=== PATIENT | female | born 1950 | race Caucasian/White ===

== ENCOUNTER 2016-12-05 08:20 | Day surgery (SDC) | payer MEDICARE, OTHER ==
[2016-12-04 09:52] VITALS: BMI 27.7
[2016-12-05] MEDS ORDERED: LIDOCAINE 1% 20 ML VIAL (10MG/ML) FOR IV START INTRADERMA PRN (09:07)
[2016-12-05] MEDS ORDERED: LACTATED RINGERS 1,000 ML IV SCH (09:07)
[2016-12-05 09:10] VITALS: RESP 16; TEMP 98.2
[2016-12-05] MEDS ORDERED: PROPOFOL 10 MG/ML 20 ML VIAL IV ONE (09:50)
--- NOTE | 2016-12-05 10:19 | P.PCN ---
Date of Procedure: 12/05/16 Procedure(s) Performed: Procedure: Esophagogastroduodenoscopy and biopsy. Preoperative diagnosis dyspepsia. Postoperative diagnosis: 1. Small sliding hiatal hernia with no obvious esophagitis or complicated reflux disease. 2. Mild gastritis with no ulcers or gastric outlet obstruction. Preparation and sedation: Were provided by anesthesia. Brief clinical history: The patient is a 66-year-old female who I have evaluated in the office earlier this month regarding fullness feeling in her stomach that started 8-9 months ago. She also reported history of chronic tightness sensation in her throat. She denied any nausea, vomiting, reflux or postnasal drip. She had multiple normal colonoscopies in the past the last was 3 years ago. She had a CT of the abdomen before her visit and that was normal with the only finding of left ovarian cyst. This evaluation is to assess for peptic ulcer disease or other pathology. Procedure: With the patient on her left lateral decubitus position and after informed consent and adequate sedation, I passed the Olympus-GIF 160 video upper endoscope through the cricopharyngeus down the esophagus. GE junction was around 36-37 cm from the incisors and there was a small sliding hiatal hernia. The esophagus did not show any obvious erosions, ulcers, strictures or Tao's esophagus. The endoscope was then passed into the stomach which was insufflated with air and inspected in detail including the retroflex view in the cardia. There was minimal mottling and erythema in the antrum and the prepyloric area with no ulcers or gastric outlet obstruction. There was a prominent fold in the cardia very close to the GE junction. These findings were consistent with gastritis. I obtained biopsies from the antrum and from the cardia. Pyloric channel did not show any ulcers. Duodenal bulb, post bulbar area and descending duodenum appeared within normal limits. Because of her symptoms, I obtained multiple biopsies from the duodenum, antrum and esophagus before the endoscope was withdrawn. The patient tolerated the procedure well. Plan: The patient was reassured. Will await biopsy results and make further plans based on her course and biopsy results. She will follow-up with you as planned including follow-up for the ovarian cyst reported on her CT. I will keep you updated on her progress.
[2016-12-05 10:50] VITALS: BP 124/74; PULSE 80
== END 2016-12-05 10:51 | disposition home or self-care (01) ==
LOC: ORWHC2ENDO 08:20
DX: K20.9 Esophagitis, unspecified (principal); K44.9 Diaphragmatic hernia without obstruction or gangrene; K29.50 Unspecified chronic gastritis without bleeding; Z79.899 Other long term (current) drug therapy
CPT/HCPCS: 88305; 88342; 43239; J2704; 99153

== ENCOUNTER → 2016-12-20 | Outpatient (CLI) | payer MEDICARE, OTHER ==
--- NOTE | 2016-12-20 22:31 | US ---
EXAMINATION TYPE: US pelvic complete DATE OF EXAM: 12/20/2016 3:56 PM COMPARISON: NONE CLINICAL HISTORY: 66-year-old female N83.20 PREVIOUS OVARIAN CYST. Patient states abnormal CT at [facility] showing left ovarian cyst. Previous Hysterectomy for cervical cancer at age 33 TECHNIQUE: Transabdominal scanning of the pelvis. FINDINGS: Uterus: Surgically Absent Right Ovary: 2.5 x 2.5 x 1.1 cm cm for a volume of 3.6 mL. Left Ovary: 4.9 x 4.9 x 3.6 cm cm for volume of 45.3 mL, enlarged secondary to a 4.0 cm simple cyst. Otherwise, no evidence of adnexal abnormality or cul-de-sac free fluid. IMPRESSION: 1. Status post hysterectomy. 2. A 4.0 cm simple cyst within the left ovary. Consensus guidelines recommend annual surveillance ult rasound for a lesion of this type in a postmenopausal female.
== END | disposition home or self-care (01) ==
LOC: RADUSWWP 15:23
PROVIDERS: ATTEND Obstetrics & Gynecology
DX: N83.202 Unspecified ovarian cyst, left side (principal); Z90.710 Acquired absence of both cervix and uterus; Z78.0 Asymptomatic menopausal state
CPT/HCPCS: 36415; 76856; 86304

== ENCOUNTER → 2017-01-16 | Outpatient (CLI) | payer MEDICARE, OTHER ==
--- NOTE | 2017-01-18 13:55 | MM ---
Reason for exam: screening (asymptomatic). Last mammogram was performed 2 years ago. History: Patient is postmenopausal and has history of other cancer at age 33. Family history of breast cancer in paternal aunt and breast cancer in paternal cousin. Benign right mammotome panel of the right breast, March 18, 2012. Benign excisional biopsy of the left breast, 1989. MG 3D Screening Mammo W/Cad Bilateral CC and MLO view(s) were taken. Prior study comparison: January 19, 2015, bilateral MG diagnostic mammo w CAD FR[facility]NY. March 08, 2012, [facility] DIGITAL RIGHT MAMMOGRAM w/CAD. March 05, 2012, bilateral digital screening mammo w/CAD. The breast tissue is heterogeneously dense. This may lower the sensitivity of mammography. Previous mammotome biopsy in the right breast. No significant changes when compared with prior studies. ASSESSMENT: Negative, BI-RAD 1 RECOMMENDATION: Routine screening mammogram of both breasts in 1 year.
== END ==
LOC: RADMAMWWP 11:56
PROVIDERS: ATTEND Obstetrics & Gynecology
DX: Z12.31 Encounter for screening mammogram for malignant neoplasm of breast (principal)
CPT/HCPCS: 77063; G0202

== ENCOUNTER → 2019-03-10 | Outpatient (CLI) | payer MEDICARE, OTHER ==
--- NOTE | 2019-03-10 16:50 | BD ---
EXAMINATION TYPE: Axial Bone Density DATE OF EXAM: 03/10/2019 COMPARISON: NONE CLINICAL HISTORY: Height: 5 FT 5 IN Weight: 178 FRAX RISK QUESTIONS: RISK FACTORS HISTORY OF: Surgery to Spine/Hip(right/left)/Wrist (right/left): SPINE X3 When: 2004,2006,HARDWARE REMOVED AND TWO FUSIONS Family History of Osteoporosis: YES Active: YES Postmenopausal woman: PART HYST AGE 35 OVARIES REMOVED AGE 67 MEDICATIONS: Thyroid Medications: YES Which medication: LEVOTHYROXINE How Long: ONE MONTH Additional Medications: LEVOTHYROXINE, CYMBALTA, Additional History: EXAM MEASUREMENTS: Bone mineral density about the R hip (g/cm2): 1.042 Bone mineral density about the L hip (g/cm2): 0.142 T Score values are as follows: -----R Neck: 0.0 -----L Neck: 0.7 -----R Total: 0.7 -----L Total: 0.8 Bone mineral density has: DECREASED -2.6 % since study of: 2014 Bone mineral density about the L Wrist (g/cm2): 0.722 T Score values are as follows: -----Dist. R+U: 0.5 -----Prox. R+U: 0.1 -----Radius total: 0.8 WRIST NOT DONE BEFORE IMPRESSION: Normal (Values between +1 and -1 indicate normal bone mass). Consider repeating this study in 5 year s or sooner if there is some new clinical indication. NOTE: T-SCORE=SD OF THE YOUNG ADULT MEAN.
--- NOTE | 2019-03-11 10:33 | MM ---
Reason for exam: screening (asymptomatic). Last mammogram was performed 2 years and 2 months ago. History: Patient is postmenopausal and has history of other cancer at age 33. Family history of breast cancer in paternal aunt and breast cancer in paternal cousin. Benign right mammotome panel of the right breast, March 18, 2012. Benign excisional biopsy of the left breast, 1989. Physical Findings: A clinical breast exam by your physician is recommended on an annual basis and results should be correlated with mammographic findings. MG 3D Screening Mammo W/Cad Bilateral CC and MLO view(s) were taken. Prior study comparison: January 18, 2017, bilateral MG 3d screening mammo w/cad. January 19, 2015, bilateral MG diagnostic mammo w CAD FRANNY. The breast tissue is heterogeneously dense. This may lower the sensitivity of mammography. New nodular density 9 o'clock left breast posterior third position. This finding is changed when compared with previous exams. ASSESSMENT: Incomplete: need additional imaging evaluation, BI-RAD 0 RECOMMENDATION: Special view mammogram of the left breast. If lesion persists on supplemental views, image directed ultrasound is recommended. [facility] will attempt to contact patient to return for supplemental views and ultrasound if indicated.
== END | disposition home or self-care (01) ==
LOC: RADMAMWWP 08:00
PROVIDERS: ATTEND Family Medicine
DX: Z12.31 Encounter for screening mammogram for malignant neoplasm of breast (principal); Z13.820 Encounter for screening for osteoporosis
CPT/HCPCS: 77063; 77067; 77080

== ENCOUNTER → 2019-03-13 | Outpatient (CLI) | payer MEDICARE, OTHER ==
--- NOTE | 2019-03-13 10:01 | MM ---
Reason for exam: additional evaluation requested from abnormal screening. Last mammogram was performed less than 1 month ago. History: Patient is postmenopausal and has history of other cancer at age 33. Family history of breast cancer in paternal aunt and breast cancer in paternal cousin. Benign right mammotome panel of the right breast, March 18, 2012. Benign excisional biopsy of the left breast, 1989. Physical Findings: Nurse did not find any significant physical abnormalities on exam. MG 3D Work Up W/Cad LT Spot compression CC, spot compression MLO, and LM view(s) were taken of the left breast. Prior study comparison: March 10, 2019, bilateral MG 3d screening mammo w/cad. January 18, 2017, bilateral MG 3d screening mammo w/cad. The breast tissue is heterogeneously dense. This may lower the sensitivity of mammography. The questioned central focal asymmetry disperses on spot 3D. Appearance unchanged from 2015. These results were verbally communicated with the patient and result sheet given to the patient on 03/13/19. ASSESSMENT: Negative, BI-RAD 1 RECOMMENDATION: Return to routine screening mammogram schedule for both breasts.
== END | disposition home or self-care (01) ==
LOC: RADMAMWWP 08:54
PROVIDERS: ATTEND Family Medicine
DX: R92.8 Other abnormal and inconclusive findings on diagnostic imaging of breast (principal)
CPT/HCPCS: 77065; G0279; 77061

== ENCOUNTER → 2020-12-27 | Outpatient (CLI) | payer MEDICARE, OTHER ==
[2020-12-27 09:57] VITALS: BP 137/84; PULSE 90; RESP 18; TEMP 98.3
--- NOTE | 2020-12-27 10:22 | P.CONS ---
History of Present Illness - Reason for Consult Consult date: 12/27/20 - Chief Complaint Lower back pain - History of Present Illness This is a 70-year-old lady with history of 4 back surgeries and axial lower back pain mostly on the right side of the spine with radiation to the groins bilaterally and also to the buttocks. She also feels pain in both heels. She has a history of idiopathic peripheral neuropathy. There are no precipitating or alleviating factors. The pain wakes the patient up at night but she denies any weight loss recently. She is denies any bowel or bladder dysfunction. The patient was referred to us by Dr. Salazar for transforaminal epidural steroid injection at the L1-L2 level on the right side. Past Medical History Past Medical History: Cancer, Osteoarthritis (OA), Thyroid Disorder Additional Past Medical History / Comment(s): Peripheral neuropathy, hx. cervical cancer 1983. History of Any Multi-Drug Resistant Organisms: None Reported Past Surgical History: Back Surgery, Breast Surgery, Hysterectomy, Orthopedic Surgery Additional Past Surgical History / Comment(s): Breast biopsies, back surgery X3 w/fusion, arthroscopic right knee surgery. Past Anesthesia/Blood Transfusion Reactions: No Reported Reaction Past Psychological History: No Psychological Hx Reported Smoking Status: Former smoker Past Alcohol Use History: Occasional Additional Past Alcohol Use History / Comment(s): Quit smoking 30+ years ago, smoked on & off for 10 yrs. Past Drug Use History: None Reported - Past Family History Father Family Medical History: Cancer Sister(s) Family Medical History: Cancer Additional Family Medical History / Comment(s): Colon Cancer. Brother(s) Family Medical History: Cancer Additional Family Medical History / Comment(s): Pancreatic Cancer. Medications and Allergies Home Medications Medication Instructions Recorded Confirmed Type DULoxetine HCL [Cymbalta] 60 mg PO DAILY 12/04/16 12/27/20 History Ibuprofen [Motrin] 800 mg PO HS PRN 12/20/20 12/27/20 History Levothyroxine Sodium 25 mcg PO DAILY 12/20/20 12/27/20 History Multivitamins, Thera [Multivitamin 1 tab PO DAILY 12/20/20 12/27/20 History (formulary)] Allergies Allergy/AdvReac Type Severity Reaction Status Date / Time No Known Allergies Allergy Verified 12/20/20 14:00 Physical Exam Vitals: Vital Signs Temp Pulse Resp BP Pulse Ox 12/27/20 09:52 98.3 F 90 18 137/84 97 - Constitutional General appearance: average body habitus - Neurologic Neuro exam of the lower extremities showed normal and symmetrical muscle strength and deep tendon reflexes. Positive tenderness in the right side of the lumbar spine at the L4 5 and L5-S1 level Positive tenderness around the sacroiliac joint on the left side Well-healed and long scar from her previous back surgeries Neurologic: CNII-XII intact - Musculoskeletal Postoperative tenderness around the sacroiliac joints bilaterally however Tyler's tests are negative bilaterally - Psychiatric Psychiatric: A&O x's 3, appropriate affect, intact judgment & insight Results Results: Computed tomography scan of the lumbar spine showed laminectomies and hardware at multiple levels, foraminal encroachment at the L1-L2 level and multiple levels of disc bulging it also showed contacting phenomenon at the sacroiliac joints bilaterally. Assessment and Plan Plan: This is a 70-year-old lady with history of lower back surgeries with no response to physical therapy. The patient has the following diagnoses: Postlaminectomy pain syndrome Sacroiliac joint dysfunction and sacroiliitis Neuro foraminal narrowing at the L1-L2 level I will plan on doing transforaminal epidural steroid injection at the L1-L2 level on the right side as per Dr. Salazar referral The patient may benefit from getting sacroiliac joint steroid injection in the future. I thank you for the referral
== END | disposition home or self-care (01) ==
LOC: PNWHC3 09:44
PROVIDERS: ATTEND Anesthesiology
DX: M96.1 Postlaminectomy syndrome, not elsewhere classified (principal); M46.1 Sacroiliitis, not elsewhere classified; M48.061 Spinal stenosis, lumbar region without neurogenic claudication; M19.90 Unspecified osteoarthritis, unspecified site; E07.9 Disorder of thyroid, unspecified; Z79.1 Long term (current) use of non-steroidal anti-inflammatories (NSAID); Z79.890 Hormone replacement therapy; Z79.899 Other long term (current) drug therapy; Z87.891 Personal history of nicotine dependence
CPT/HCPCS: 99211

== ENCOUNTER 2021-01-27 12:13 | Day surgery (SDC) | payer MEDICARE, OTHER ==
[2021-01-21 14:58] VITALS: BMI 29.7
[~2021-01-27 12:13] MED LIST: LACTATED RINGERS 1,000 ML IV SCH
[2021-01-27 12:34] VITALS: RESP 16; TEMP 97.6
[2021-01-27] MEDS ORDERED: LIDOCAINE 1% (10MG/ML) FOR IV START INTRADERMA ONE (12:38)
[2021-01-27] MEDS ORDERED: IOPAMIDOL M200 10 ML VIAL ONE (13:12)
[2021-01-27] MEDS ORDERED: methylPREDNISolone ACETATE 40 MG/ML 1 ML VIAL ONE (13:12)
[2021-01-27] MEDS ORDERED: MIDAZOLAM 2 MG/2 ML VIAL ONE (13:12)
[2021-01-27] MEDS ORDERED: fentaNYL (PF) 50 MCG/ML 2 ML AMP ONE (13:12)
--- NOTE | 2021-01-27 13:28 | P.PCN ---
Date of Procedure: 01/27/21 Procedure(s) Performed: PREOPERATIVE DIAGNOSIS: 1- Lumbar radiculopathy . 2-lumbar foraminal stenosis POSTOPERATIVE DIAGNOSIS: Same as preoperative diagnoses. PROCEDURE 1. Transforaminal epidural steroid injection under fluoroscopic guidance at right L1-2 level. (Fluoroscopy images stored on file in the radiology Department ) 2. Lumbar epidurogram . ANESTHESIA: Local with 1% lidocaine 3 ml , moderate sedation with intravenous Versed 1 mg and fentanyle 50 micrograms. EBL: Minimal PROCEDURE INDICATION: The patient with low back pain and radiculopathy symptoms unresponsive to conservative treatment. PROCEDURE DESCRIPTION / TECHNIQUE: The patient was seen and identified in the preoperative area. Risks, benefits, complications, and alternatives were discussed with the patient. The patient agreed to proceed with the procedure and signed the consent. IV was started, and vital signs were stable. Patient was taken to the OR and time out was completed. The patient was placed in the prone position on procedure table and a pillow was placed under the abdomen to reduce lumbar lordosis. The lumbosacral area was prepped and draped in the usual sterile fashion. Critical pause was taken. Vital signs were closely monitored during the procedure. Conscious sedation was used during the procedure to decrease patient s anxiety. Using oblique fluoroscopy, the chin of the ``Mariusz dog at Right L1-2 level was identified, and the skin and deeper tissues just below was localized with 1% lidocaine. Subsequently, a 22-gauge 3.5-inch spinal needle was advanced under a tunneled view fluoroscopic guidance just underneath the chin of the `Luanay dog at the right L1-2 Under lateral fluoroscopy, the needle was then advanced to the posterior border of the interforaminal space. After negative aspiration of CSF and blood and with no paresthesias, 1 mL Isovue 200 contrast dye was injected excellent epidurogram and outlining of the nerve root Subsequently, 3 mL of block solution containing 60 mg Depo-Medrol and 2 mL of 0.9% normal saline PF was injected. Needle was removed. At the end of the procedure, skin was cleansed, and bandages were applied. COMPLICATIONS:none DISPOSITION / PLANS: The patient was placed in a supine position and transferred to the recovery area in a stable condition for observation. There was no evidence of lower extremity motor or sensory deficit after the procedure. Patient was discharged from the recovery room after meeting discharge criteria. Home discharge instructions were given to the patient by the staff. The patient was reexamined prior to discharge.
[2021-01-27] MEDS ORDERED: IV FLUID CONTINUATION 1,000 ML IV ONE (13:33)
[2021-01-27 13:47] VITALS: BP 107/65; PULSE 78
--- NOTE | 2021-01-28 07:43 | FL ---
Fluoroscopy HISTORY: Pain 3 seconds fluoroscopy time supplied to the referring clinician. 1 intraoperative C-arm images docume nt the procedure. See dictated report from anesthesia.
== END 2021-01-27 14:10 ==
LOC: ORPAIN 12:13
PROVIDERS: ATTEND Specialist
DX: M48.061 Spinal stenosis, lumbar region without neurogenic claudication (principal); M54.16 Radiculopathy, lumbar region; Z90.710 Acquired absence of both cervix and uterus
CPT/HCPCS: 64483; J2250; J1030; J3010; Q9966

== ENCOUNTER 2021-03-10 06:28 | Day surgery (SDC) | payer MEDICARE, OTHER ==
[2021-03-07 15:49] VITALS: BMI 29.5
[2021-03-10] MEDS ORDERED: LACTATED RINGERS 1,000 ML IV SCH (06:35)
[2021-03-10 06:42] VITALS: TEMP 97.8
[2021-03-10] MEDS ORDERED: methylPREDNISolone ACETATE 40 MG/ML 1 ML VIAL ONE (07:14)
[2021-03-10] MEDS ORDERED: IOPAMIDOL M200 10 ML VIAL ONE (07:14)
--- NOTE | 2021-03-10 07:27 | P.PCN ---
Date of Procedure: 03/10/21 Procedure(s) Performed: PREOPERATIVE DIAGNOSIS: 1- Lumbar radiculopathy . 2-lumbar foraminal stenosis. 3-bilateral sacroiliitis POSTOPERATIVE DIAGNOSIS: Same as preoperative diagnoses. PROCEDURE 1. Transforaminal epidural steroid injection under fluoroscopic guidance at right L1-2 level. (Fluoroscopy images stored on file in the radiology Department ) 2. Lumbar epidurogram . ANESTHESIA: Local with 1% lidocaine 3 ml only. EBL: Minimal PROCEDURE INDICATION: The patient with low back pain and radiculopathy symptoms unresponsive to conservative treatment. PROCEDURE DESCRIPTION / TECHNIQUE: The patient was seen and identified in the preoperative area. Risks, benefits, complications, and alternatives were discussed with the patient. The patient agreed to proceed with the procedure and signed the consent. IV was started, and vital signs were stable. Patient was taken to the OR and time out was completed. The patient was placed in the prone position on procedure table and a pillow was placed under the abdomen to reduce lumbar lordosis. The lumbosacral area was prepped and draped in the usual sterile fashion. Critical pause was taken. Vital signs were closely monitored during the procedure. Using oblique fluoroscopy, the chin of the ``Mariusz dog at Right L1-2 level was identified, and the skin and deeper tissues just below was localized with 1% lidocaine. Subsequently, a 22-gauge 3.5-inch spinal needle was advanced under a tunneled view fluoroscopic guidance just underneath the chin of the ``Mariusz dog at the right L1-2 Under lateral fluoroscopy, the needle was then advanced to the posterior border of the interforaminal space. After negative aspiration of CSF and blood and with no paresthesias, 1 mL Isovue 200 contrast dye was injected excellent epidurogram and outlining of the nerve root Subsequently, 3 mL of block solution containing 60 mg Depo-Medrol and 2 mL of 0.9% normal saline PF was injected. Needle was removed. At the end of the procedure, skin was cleansed, and bandages were applied. COMPLICATIONS:none DISPOSITION / PLANS: The patient was placed in a supine position and transferred to the recovery area in a stable condition for observation. There was no evidence of lower extremity motor or sensory deficit after the procedure. Patient was discharged from the recovery room after meeting discharge criteria. Home discharge instructions were given to the patient by the staff. The patient was reexamined prior to discharge.
[2021-03-10 07:33] VITALS: RESP 16
[2021-03-10 07:49] VITALS: BP 117/79; PULSE 73
--- NOTE | 2021-03-10 08:49 | FL ---
Fluoroscopy HISTORY: Pain 17 seconds fluoroscopy time supplied to the referring clinician. 1 intraoperative C-arm images docum ent the procedure. See dictated report from anesthesia.
== END 2021-03-10 08:01 | disposition home or self-care (01) ==
LOC: ORPAIN 06:28
PROVIDERS: ATTEND Specialist
DX: M48.061 Spinal stenosis, lumbar region without neurogenic claudication (principal); M54.16 Radiculopathy, lumbar region; M46.1 Sacroiliitis, not elsewhere classified; Z78.0 Asymptomatic menopausal state
CPT/HCPCS: 64483; J1030; Q9966

== ENCOUNTER → 2021-04-11 | Outpatient (CLI) | payer MEDICARE, OTHER ==
[2021-04-11 09:38] VITALS: BP 134/79; PULSE 94; RESP 20; TEMP 98.3
--- NOTE | 2021-04-11 09:52 | P.PN ---
Subjective Progress Note Date: 04/11/21 This is a 61-year-old lady with history of chronic lower back pain with rad iation to the lower extremities down to both feet with numbness and tingling in both feet. 4 back surgeries previously. We did a transforaminal epidural steroid injection at the L1-L2 level on the right side as per for referral this procedure did not help her pain. Her pain is mostly from the waist down to both legs down to the feet as mentioned above. She has lumbar fusion from L2 to S1 as she states. She takes Cymbalta 60 mg for her idiopathic peripheral neuropathy. Patient denies new-onset weakness, bowel/bladder incontinence, or any other signs or symptoms of cauda equina syndrome. There are no signs of acute intoxication, and no indications of medication diversion or overuse. In addition to above, 13-point review of systems is also negative for chest pain, shortness of breath, changes in vision, changes in hearing, new onset weakness, abdominal pain, diarrhea, extreme fatigue, malaise, fever, skin changes, homicidal or suicidal ideation, or bowel or bladder incontinence. Vital Signs: Reviewed in EMR Gen: AAOx3, NAD HEENT: PERRLA,hearing grossly normal Pulm: resp unlabored Neck: supple, trachea midline Neuro exam of the lower extremities: Normal muscle strength bilaterally Straight leg raising test: Tyler's test: Range of motion of the lumbar spine: Facet loading test: Tenderness in the paravertebral musculature: Positive on the lumbar area bilaterally Neuro: CN II-XII grossly intact, Imaging: Reviewed in EMR/chart Assessment: Post laminectomy the pain syndrome Idiopathic peripheral neuropathy Plan: 1. Explanation: Opioid and psychological risk scores were reviewed. Diagnoses, prognoses, and multiple treatment options including but not limited to physical therapy, interventional therapies, adjuvant medical therapies, narcotic medicati on therapies, and surgery were discussed with the patient and all questions were answered to the patient's satisfaction. 2. Opioid agreement: Signed with the patient and the patient is warned not to use opioids while driving or before driving and not to combine opioids with benzodiazepines or alcohol. 3. Counseling: The patient was counseled extensively on SMOKING CESSATION, BODY MASS INDEX, EXERCISE. Specifically, the patient was instructed regarding the importance of smoking cessation, obesity, and exercise in the context of both chronic pain and overall health. 4. Procedures: The patient failed to respond to transforaminal epidural steroid injection at the L1-L2 level on the right side. Most of the patient's pain is below her waist line and down to both feet bilaterally. I think the patient may benefit from a caudal epidural steroid injection with lysis of adhesions. As a matter of fact the patient said that 10 years ago she had the same procedure which gave her many years of pain relief. We will also check with Dr. Salazar's office about the procedure he would like us to do since he gave the patient a list of procedures but she forgot that list at home. But I think that the patient will get good benefit from the caudal epidural steroid injection due to the reasons mentioned above. 5. Consultations: None 6. Investigations: None 7. Medications: None prescribed 8. Disposition: Proceed to the above-mentioned procedure as soon as possible 9. Maps were reviewed and were appropriate. Objective - Vital Signs Vital signs: Vital Signs Temp 98.3 F 04/11/21 09:34 Pulse 94 04/11/21 09:34 Resp 20 04/11/21 09:34 BP 134/79 04/11/21 09:34 Pulse Ox 97 04/11/21 09:34
== END ==
LOC: PNWHC3 09:24
PROVIDERS: ATTEND Anesthesiology
DX: M96.1 Postlaminectomy syndrome, not elsewhere classified (principal); G60.9 Hereditary and idiopathic neuropathy, unspecified; Z87.891 Personal history of nicotine dependence
CPT/HCPCS: 99211

== ENCOUNTER 2021-04-26 08:34 | Day surgery (SDC) | payer MEDICARE, OTHER ==
[2021-04-25 10:17] VITALS: BMI 29.5
[2021-04-26 08:58] VITALS: TEMP 97.8
[2021-04-26] MEDS ORDERED: LIDOCAINE 1% (10MG/ML) FOR IV START INTRADERMA ONE (09:02)
[2021-04-26] MEDS ORDERED: fentaNYL (PF) 50 MCG/ML 2 ML AMP ONE (09:47)
[2021-04-26] MEDS ORDERED: methylPREDNISolone ACETATE 40 MG/ML 1 ML VIAL ONE (09:47)
[2021-04-26] MEDS ORDERED: IOPAMIDOL M200 10 ML VIAL ONE (09:47)
[2021-04-26] MEDS ORDERED: LIDOCAINE 2% INJ 20 MG/ML (20 ML MDV) ONE (09:47)
[2021-04-26] MEDS ORDERED: MIDAZOLAM 2 MG/2 ML VIAL ONE (09:47)
--- NOTE | 2021-04-26 10:01 | P.PCN ---
Date of Procedure: 04/26/21 Procedure(s) Performed: PREOPERATIVE DIAGNOSIS: 1-Lumbar post laminectomy syndrome. 2-lumbar radi culopathy. 3-Billateral sacroiliitis POSTOPERATIVE DIAGNOSIS:1- Lumbar post laminectomy syndrome. 2- Lumbar radiculopathy.. 3-bilateral sacroiliitis PROCEDURE: 1. Caudal epidural steroid injection under fluoroscopic guidance. (Fluoroscopy images available in the radiology department ) 2. Caudal epidurogram ANESTHESIA: Local with 1% lidocaine; 5ml for subcutaneous infiltrations and IV versed 2 mg ,and fentanyl 100 mcg EBL: None. PROCEDURE INDICATION: The patient with neuropathic pain radiating distally returns for caudal epidural steroid injection. PROCEDURE DESCRIPTION: The patient was seen and identified in the preoperative area. Risks, benefits, complications, and alternatives were discussed with the patient. The patient agreed to proceed with the procedure and signed the consent. IV was started, and vital signs were stable. Patient was taken to the OR and time out was completed. The patient was placed in the prone position on procedure table and a pillow was placed under the abdomen to reduce lumbar lordosis. The lumbosacral area was prepped and draped in the usual sterile fashion. Critical pause was taken. Vital signs were closely monitored during the procedure. Using lateral fluoroscopy the anterior-posterior plates of the sacrum were identified and the skin and deeper tissues corresponding into sacrococcygeal ligament were anesthetized using approximately 3 mL of 1% lidocaine. Then under fluoroscopy, a 3-1/2-inch 20-gauge Tuohy epidural needle was guided through the sacrococcygeal ligament, and into the epidural space. After negative aspiration, a 2 mL of Isovue 200 contrast dye was injected with excellent epidurogram. Again after negative aspiration for CSF, blood, and with no paresthesias, then Depo-Medrol 60mg, 2ml of 1% preservative free Lidocaine with 6 ml of preservative free normal saline(total of 10ml)solution was injected with washout of epidurogram. Needle was withdrawn intact. Skin was cleansed, and bandage was applied. COMPLICATIONS: None DISPOSITION / PLANS: The patient was placed in a supine position and transferred to the recovery area in a stable condition for observation and was discharged from the recovery room after meeting discharge criteria. Home discharge instructions given to the patient by the staff. The patient was reexamined prior to discharge. The patient will schedule a follow up in the clinic in 2-4 weeks, if patient continued to have severe low back pain,after the injections today ,then she will benefit from bilateral sacroiliac joint steroid injection.
[2021-04-26] MEDS ORDERED: IV FLUID CONTINUATION 1,000 ML IV ONE (10:03)
[2021-04-26 10:05] VITALS: PULSE 76
--- NOTE | 2021-04-26 10:09 | FL ---
EXAMINATION TYPE: FL guided pain mgmt statistic DATE OF EXAM: 04/26/2021 HISTORY: Fluoroscopy time 3 seconds of fluoroscopy provided. IMPRESSION: 1. Fluoroscopy time.
[2021-04-26 10:24] VITALS: BP 111/71; RESP 16
== END 2021-04-26 10:40 | disposition home or self-care (01) ==
LOC: ORPAIN 08:34
PROVIDERS: ATTEND Specialist
DX: M96.1 Postlaminectomy syndrome, not elsewhere classified (principal); Y83.8 Other surgical procedures as the cause of abnormal reaction of the patient, or of later complication, without mention of misadventure at the time of the procedure; M46.1 Sacroiliitis, not elsewhere classified; M54.16 Radiculopathy, lumbar region
CPT/HCPCS: 62323; J2001; J2250; J1030; J3010; Q9966

== ENCOUNTER → 2021-05-23 | Outpatient (CLI) | payer MEDICARE, OTHER ==
[2021-05-23 11:22] VITALS: BP 138/84; PULSE 85; RESP 18; TEMP 98.1
--- NOTE | 2021-05-23 11:42 | P.PN ---
Subjective Progress Note Date: 05/23/21 This is a follow-up visit for this 70 years old female with a chronic history of severe low back pain, she is diagnosed with lumbar radiculopathy and sacroiliitis, previously we have done transforaminal epidural steroid injection and epidural steroid injection, currently she reported that all her pain in the low back area with radiation to the buttock and to the groin, he denies any motor or sensory deficits she denies any fever or night sweats denies any change in the bowel movement or urinationm, patient tried medication in the past Tylenol [place] and Motrin without any significant improvement, she tried ice therapy and she had no improvement she continues to do home exercise and she continued to have pain. Objective - Vital Signs Vital signs: Vital Signs Temp 98.1 F 05/23/21 11:18 Pulse 85 05/23/21 11:18 Resp 18 05/23/21 11:18 BP 138/84 05/23/21 11:18 Pulse Ox 96 05/23/21 11:18 - Exam Physical Examinations : -Constitutiona : Cooperative , not in acute distress . -HEENT : nech : supple , no Lymphadenopathy , normal thyroid size . : eyes : no ptosis , no icterus, no photophobia . - neurologic : Cranial nerve II to XII intact , no focal neurological deffecit . -psychatric : alert , oriented X 3 , appropriate affect , intact judgment and insight . -Lymphatic : no Lymphadenopathy . - musculoskeltal : Lumber spine moter stegnth lower extremities ,thigh and legs 5/5 Right side , 5/5 Left side deep tendon reflexes : normal Knee Jerk , normal ankle Jerk lumber facet Loading Test =positive Right , positive Left Range of motion of the lumbar spine Flexion 30 degrees, extension 10 degrees strait leg raising test = negative bilaterally Fabere test= negative bilaterally Sever tenderness over the Sacroiliac joint on the Right , and Left sides Gaenslen test= positive right ,and positive left . Seated flexion test= positive right ,and positive Left . Distraction test= positive bilaterally Assessment and Plan Assessment: Assessment and plan=1-bilateral sacroiliitis. 2-lumbar radiculopathy. 3-previous laminectomy and fusion surgery. could benefit from bilateral sacroiliac joint steroid injection under fluoroscopy guidance. - PQRS measures = - Patient's medications are documented in the chart. -Tobacco use is negative and counseling.Given. -Patient's has not received pneumococcal vaccine. -Advanced care planning discussed, patient not eligible. -Opiate contract not signed. -Pain positive and follow-up visit/procedure is scheduled. -Patient's blood pressure measured [ 138/84] , and documented in the record ,and patient will follow up with the primary care. -Patient's weight was measured and body mass index [29.7 ] above the,normal limits and counseling was done. and patient instructed to follow-up with the primary care physician. -Patient was not identified as an unhealthy alcohol user Time with Patient: Less than 30
== END ==
LOC: PNWHC3 11:08
PROVIDERS: ATTEND Specialist
DX: M46.1 Sacroiliitis, not elsewhere classified (principal); M54.16 Radiculopathy, lumbar region; M96.1 Postlaminectomy syndrome, not elsewhere classified; Z87.891 Personal history of nicotine dependence
CPT/HCPCS: 99211

== ENCOUNTER 2021-06-28 09:33 | Day surgery (SDC) | payer MEDICARE, OTHER ==
[2021-06-24 15:37] VITALS: BMI 29.3
[2021-06-28] MEDS ORDERED: LACTATED RINGERS 1,000 ML IV ONE ×2 (10:10)
[2021-06-28 10:15] VITALS: TEMP 97.9
[2021-06-28] MEDS ORDERED: MIDAZOLAM 2 MG/2 ML VIAL ONE (10:20)
[2021-06-28] MEDS ORDERED: ROPIVACAINE 5MG/ML 20ML VIAL ONE (10:20)
[2021-06-28] MEDS ORDERED: methylPREDNISolone ACETATE 40 MG/ML 1 ML VIAL ONE (10:20)
[2021-06-28] MEDS ORDERED: fentaNYL (PF) 50 MCG/ML 2 ML AMP ONE (10:20)
[2021-06-28] MEDS ORDERED: IV FLUID CONTINUATION 850 ML IV ONE (10:29)
--- NOTE | 2021-06-28 10:30 | P.PCN ---
Date of Procedure: 06/28/21 Procedure(s) Performed: Procedure= bilateral sacroiliac joints steroid injection under fluoroscopy guidance (fluoroscopy image stored on file in the radiology Department ) Preoperative diagnosis= 1-bilateral sacroiliitis Postoperative diagnosis=Same as preop Diagnosis . Complication = none Condition= stable Anesthesia= moderate sedation with intravenous Versed 2 mg , and fentanyl 50 micrograms . Indication for the procedure= patient complaining of low back pain , examination was positive for severe tenderness over the sacroiliac joints bilaterally and patient diagnosed with sacroiliitis, for this reason she was good candidate for sacroiliac joint steroid injection. Description of the procedure= procedure risk and benefits discussed with the patient, including but not limited, risk of infection and bleeding, and ALLERGIC reaction to the medication and not complete pain relief and patient agreed with the preceding patient taken to the operating room, placed in prone position or standard monitors applied to the patient then after induction of anesthesia back prepped with chlorhexidine 3 times , Then under strict sterile technique, first I did the right sacroiliac joint the which was identified under fluoroscopy guidance been local infiltration of the skin and subcu interstitial with lidocaine 1% then 22-gauge Quincke Needle advanced slowly under fluoroscopy and placed in the right sacroiliac joint needle placement confirmed with AP and oblique and lateral view and after appropriate needle placement confirmed and after negative aspiration, or heme , then Ropivacaine 0.5% 4 mL, and 20 mg of Depo-Medrol mixed together and injected in the right sacroiliac joint after negative aspiration patient tolerated the procedure well without any complication. Then the left sacroiliac joint steroid injection done under strict sterile technique local infiltration of the skin and subcu interstitial at the location of the left sacroiliac joint then a 22-gauge Quincke Needle advanced slowly under fluoroscopy time placed in the left sacroiliac joint, needle placement confirmed with AP and oblique and lateral view then after appropriate needle placement confirmed and after negative aspiration 0.5% Ropivacaine 4 mL and 20 mg of Depo-Medrol injected in the left sacroiliac joint after negative aspiration patient tolerated the procedure well that any complications and she will follow up in clinic 3 weeks
[2021-06-28 11:01] VITALS: BP 104/69; PULSE 81; RESP 20
--- NOTE | 2021-06-29 08:17 | FL ---
EXAMINATION TYPE: FL guided pain mgmt statistic DATE OF EXAM: 06/28/2021 HISTORY: Fluoroscopy time 5 seconds of fluoroscopy provided. IMPRESSION: 1. Fluoroscopy time.
== END 2021-06-28 10:59 | disposition home or self-care (01) ==
LOC: ORPAIN 09:33
PROVIDERS: ATTEND Specialist
DX: M46.1 Sacroiliitis, not elsewhere classified (principal); Z90.710 Acquired absence of both cervix and uterus
CPT/HCPCS: J2250; J1030; J3010; J2795; G0260

== ENCOUNTER 2021-07-19 07:41 | Day surgery (SDC) | payer MEDICARE, OTHER ==
[2021-07-14 11:47] VITALS: BMI 29.5
[2021-07-19] MEDS ORDERED: LIDOCAINE 1% (10MG/ML) FOR IV START INTRADERMA ONE (08:22)
[2021-07-19 08:35] VITALS: TEMP 97.8
[2021-07-19] MEDS ORDERED: methylPREDNISolone ACETATE 40 MG/ML 1 ML VIAL ONE (08:35)
[2021-07-19] MEDS ORDERED: MIDAZOLAM 2 MG/2 ML VIAL ONE (08:35)
[2021-07-19] MEDS ORDERED: ROPIVACAINE 5MG/ML 20ML VIAL ONE (08:35)
[2021-07-19] MEDS ORDERED: fentaNYL (PF) 50 MCG/ML 2 ML AMP ONE (08:35)
--- NOTE | 2021-07-19 08:50 | P.PCN ---
Date of Procedure: 07/19/21 Procedure(s) Performed: Procedure= bilateral sacroiliac joints steroid injection under fluoroscopy guidance (fluoroscopy image stored on file in the radiology Department ) Preoperative diagnosis= 1-bilateral sacroiliitis Postoperative diagnosis=Same as preop Diagnosis . Complication = none Condition= stable Anesthesia= moderate sedation with intravenous Versed 2 mg , and fentanyl 50 micrograms . Indication for the procedure= patient complaining of low back pain , examination was positive for severe tenderness over the sacroiliac joints bilaterally and patient diagnosed with sacroiliitis, for this reason she was good candidate for sacroiliac joint steroid injection. Description of the procedure= procedure risk and benefits discussed with the patient, including but not limited, risk of infection and bleeding, and ALLERGIC reaction to the medication and not complete pain relief and patient agreed with the preceding patient taken to the operating room, placed in prone position or standard monitors applied to the patient then after induction of anesthesia back prepped with chlorhexidine 3 times , Then under strict sterile technique, first I did the right sacroiliac joint the which was identified under fluoroscopy guidance been local infiltration of the skin and subcu interstitial with lidocaine 1% then 22-gauge Quincke Needle advanced slowly under fluoroscopy and placed in the right sacroiliac joint needle placement confirmed with AP and oblique and lateral view and after appropriate needle placement confirmed and after negative aspiration, or heme , then Ropivacaine 0.5% 4 mL, and 30 mg of Depo-Medrol mixed together and injected in the right sacroiliac joint after negative aspiration patient tolerated the procedure well without any complication. Then the left sacroiliac joint steroid injection done under strict sterile technique local infiltration of the skin and subcu interstitial at the location of the left sacroiliac joint then a 22-gauge Quincke Needle advanced slowly under fluoroscopy time placed in the left sacroiliac joint, needle placement confirmed with AP and oblique and lateral view then after appropriate needle placement confirmed and after negative aspiration 0.5% Ropivacaine 4 mL and 30 mg of Depo-Medrol injected in the left sacroiliac joint after negative aspiration patient tolerated the procedure well that any complications and she will follow up in clinic 3 weeks
[2021-07-19 09:03] VITALS: RESP 18
[2021-07-19 09:17] VITALS: BP 105/56; PULSE 81
[2021-07-19] MEDS ORDERED: IV FLUID CONTINUATION 1,000 ML IV ONE (09:19)
--- NOTE | 2021-07-19 12:10 | FL ---
Fluoroscopy HISTORY: Pain 5 seconds fluoroscopy time supplied to the referring clinician. 2 intraoperative C-arm images docume nt the procedure. See dictated report from anesthesia.
== END 2021-07-19 09:36 | disposition home or self-care (01) ==
LOC: ORPAIN 07:41
PROVIDERS: ATTEND Specialist
DX: M46.1 Sacroiliitis, not elsewhere classified (principal)
CPT/HCPCS: J2250; J1030; J3010; J2795; G0260; 99152

== ENCOUNTER → 2021-09-01 | Outpatient (CLI) | payer MEDICARE, OTHER | END | disposition home or self-care (01) | LOC: LABPAT 11:53 | PROVIDERS: ATTEND Orthopaedic Surgery | DX: Z01.812 Encounter for preprocedural laboratory examination (principal) | CPT/HCPCS: 87070 ==

== ENCOUNTER → 2021-09-12 | Outpatient (CLI) | payer MEDICARE, OTHER ==
[2021-09-12 11:58] LABS: HCT 44.3 % (34.0-46.0); HGB 14.6 gm/dL (11.4-16.0); MCH 31.8 pg (25.0-35.0); MCV 96.2 fL (80.0-100.0); Mean Platelet Volume 6.9; Platelet Count 284 k/uL (150-450); RBC 4.61 m/uL (3.80-5.40); RDW 13.2 % (11.5-15.5); WBC 4.5 k/uL (3.8-10.6)
[2021-09-12 12:13] LABS: Prothrombin Time 10.5 sec (9.0-12.0)
[2021-09-12 12:14] LABS: Partial Thromboplastin Time 24.7 sec (22.0-30.0)
[2021-09-12 12:19] LABS: ALT 23 U/L (4-34); AST 22 U/L (14-36); African American GFR (CKD) >90 (>60 ml/min/1.73 sqM); Albumin 4.1 g/dL (3.5-5.0); Alkaline Phosphatase 61 U/L (38-126); Anion Gap 8 mmol/L; Blood Urea Nitrogen 16 mg/dL (7-17); Calcium 9.4 mg/dL (8.4-10.2); Carbon Dioxide 27 mmol/L (22-30); Chloride 102 mmol/L (98-107); Glucose 108 mg/dL (74-99); Non-African American GFR(CKD) 90 (>60 ml/min/1.73 sqM); Potassium 4.5 mmol/L (3.5-5.1); Sodium 137 mmol/L (137-145); Total Bilirubin 0.5 mg/dL (0.2-1.3); Total Protein 6.9 g/dL (6.3-8.2)
[2021-09-12 12:34] LABS: Appearance,Urine Clear (Clear); Bilirubin,Urine Negative (Negative); Blood,Urine Negative (Negative); Color,Urine Light Yellow; Glucose,Urine (UA) Negative (Negative); Ketones,Urine Negative (Negative); Leukocyte Esterase,Urine Negative (Negative); Nitrite,Urine Negative (Negative); PH, Urine 6.5 (5.0-8.0); Protein,Urine Negative (Negative); Specific Gravity,Urine 1.005 (1.001-1.035); Urobilinogen,Urine <2.0 mg/dL (<2.0)
== END | disposition home or self-care (01) ==
LOC: LABPAT 10:17
PROVIDERS: ATTEND Orthopaedic Surgery
DX: Z01.812 Encounter for preprocedural laboratory examination (principal); R94.31 Abnormal electrocardiogram [ECG] [EKG]
CPT/HCPCS: 80053; 81003; 85027; 85610; 85730; 93005

== ENCOUNTER 2021-09-20 05:33 | Day surgery (SDC) | payer MEDICARE, OTHER ==
[2021-09-16 10:51] VITALS: BMI 30.6
[~2021-09-20 05:33] MED LIST changes: +ACETAMINOPHEN TAB 500 MG TAB PO PRN; +DEXAMETHASONE SOD PHOSPHATE 4 MG/ML 1 ML VIAL IV ONE; +GABAPENTIN 300 MG CAP PO PRN; -LACTATED RINGERS 1,000 ML IV SCH; +MELOXICAM 7.5 MG TAB PO PRN; +ONDANSETRON 4 MG/2 ML VIAL IVP ONE; +TRANEXAMIC ACID 1,000 MG in SODIUM CHLORIDE 0.9% 100 ML IVPB PRN
[2021-09-20] MEDS: LACTATED RINGERS 1,000 ML IV SCH ×2 (06:29→12:19)
[2021-09-20] MEDS ORDERED: LIDOCAINE 1% INJ 10MG/ML (20 ML MDV) ONE (06:54)
[2021-09-20] MEDS ORDERED: HYDROmorphone (PF) 1 MG/ML ONE (06:54)
[2021-09-20] MEDS ORDERED: NEOSTIGMINE 1 MG/ML 10 ML VIAL ONE (06:54)
[2021-09-20] MEDS ORDERED: SODIUM CHLORIDE 0.9% 100 ML BAG ONE (06:54)
[2021-09-20] MEDS ORDERED: PROPOFOL 10 MG/ML 20 ML VIAL IV ONE (06:54)
[2021-09-20] MEDS ORDERED: SODIUM CHLORIDE 0.9% IRRIG 1,000 ML BTL IRRIGATION ONE (06:54)
[2021-09-20] MEDS ORDERED: ROCURONIUM 10 MG/ML (5 ML VIAL) IV ONE (06:54)
[2021-09-20] MEDS ORDERED: GLYCOPYRROLATE 0.2 MG/ML 2 ML VIAL ONE (06:54)
[2021-09-20] MEDS ORDERED: SUGAMMADEX SODIUM 500 MG/5 ML SDV IV ONE (06:54)
[2021-09-20] MEDS ORDERED: SUCCINYLCHOLINE CHLORIDE 100 MG/5 ML SYR IV ONE (06:54)
[2021-09-20] MEDS ORDERED: HEPARIN SODIUM,PORCINE 10,000 UNIT/ML 1 ML VIAL ONE (06:54)
[2021-09-20] MEDS ORDERED: TRANEXAMIC ACID 1,000 MG/10 ML VIAL ONE (06:54)
[2021-09-20] MEDS ORDERED: PHENYLEPHRINE-0.9% NACL SYG 1,000 MCG/10 ML SYRINGE ONE (06:54)
[2021-09-20] MEDS ORDERED: fentaNYL (PF) 50 MCG/ML 2 ML AMP ONE (06:54)
[2021-09-20] MEDS ORDERED: MIDAZOLAM 2 MG/2 ML VIAL ONE (06:54)
[2021-09-20] MEDS ORDERED: ceFAZolin 1,000 MG in SODIUM CHLORIDE 0.9% 1,000 ML IRRIGATION ONE (06:57)
[2021-09-20] MEDS ORDERED: HYDROmorphone 0.5 MG/0.5 ML SYRINGE IVP PRN ×3 (07:00→08:51)
[2021-09-20] MEDS: ROPIVACAINE/EPI/CLONIDINE/KET 50 ML SYRINGE MISCELLANE PRN ×2 (07:24→08:15)
--- NOTE | 2021-09-20 08:18 | P.OP ---
Date of Procedure: 09/20/21 Preoperative Diagnosis: Severe osteoarthritis left hip Postoperative Diagnosis: Severe osteoarthritis left hip Procedure(s) Performed: Left total hip arthroplasty with a direct anterior approach Implants: [employer] Polarstem standard size 2 [employer] R3, 3 hole hemispherical acetabular shell, 52 mm [employer] Reflection 6.5 mm cancellus screw, 25 mm 2 [employer] R3, XLPE 20 acetabular liner [employer] Oxinium femoral head 36 m, -3 All components were press-fit. The articulation is Oxinium on polyethylene. Anesthesia: GETA Surgeon: Daniel Evans Mobile Service Rv Technician #1: Gracie Rouse Estimated Blood Loss (ml): 350 (135 mL returned with Cell Saver) Pathology: other (Femoral head) Condition: stable Disposition: PACU Indications for Procedure: After failure of conservative treatment we discussed the surgical and nonsurgical treatment options at length. Patient wishes to proceed with a total hip arthroplasty with a direct anterior approach. Complications specific to this procedure were discussed at length, including but not limited to infection, leg length discrepancy, dislocation, nerve injury, and fracture. Covid-19 was also discussed at length with the patient, and they are aware of the current policies and procedures. The patient was given the option of delaying surgery, but they elect to proceed knowing these risks. Patient is aware of all these complications and informed consent was obtained Operative Findings: The operative findings are consistent with severe osteoarthritis of the left hip Description of Procedure: Patient was seen and evaluated in the preoperative area and the consent was reviewed. The operative site was marked with a skin marker. The patient was then brought to the operating room and given preoperative antibiotics intravenously. 1 g of Tranexamic acid was also given intravenously. A general anesthetic was administered by the anesthesia department. The patient was then placed on the [place] table with the bony prominences well-padded. The hip area was then prepped with a ChloraPrep solution and draped in the usual sterile fashion. A universal timeout was then performed, which confirmed the patient's name, surgical site, ALLERGIES, and procedure being performed on the consent. Next the incision site was located at 1 cm distal and 2 cm lateral to the anterior superior iliac spine. The skin and subcutaneous tissues were sharply incised. Incision was carefully dissected down to the fascia overlying the tensor fascia waleska muscle. This fascia was then incised in line with the incision. Care was taken to stay laterally in order to avoid injuring the lateral femoral cutaneous nerve. Next, using blunt finger dissection, the tensor fascia waleska muscle was dissected off its investing fascia. The muscle was then carefully retracted laterally with a cobra retractor over the lateral neck of the femur. Next, the circumflex vessels were identified and cauterized using the AquaMantis device. The anterior hip capsule was then exposed. The capsule was then opened and an inverted T fashion. Cobra retractors were then placed intracapsularly. The retractors were maintained intracapsular throughout the procedure. The proximal femur was then visualized. A small amount of traction was placed on the leg. The femoral neck was then osteotomized appropriate level above the lesser trochanter. A small wedge of bone was then removed from the remaining femoral head. Next, using a corkscrew the femoral head was removed from the acetabulum. On gross visual inspection, the femoral head had complete loss of articular cartilage and multiple periarticular osteophytes. The femoral head was then measured. Attention was then turned to the acetabulum. The acetabulum was exposed and any remaining labrum was excised. Sequential reaming of the acetabulum was performed using fluoroscopic guidance until there was a good bed of bleeding cancellus bone. When the appropriate size was reached, a trial was then placed. The position and fit of the trial was checked with fluoroscopy. The trial was then removed. Then, using fluoroscopic guidance, the final implant was impacted at 20 of anteversion and 40 of abduction, and fully seated in the acetabulum. 2 screws were then placed in the acetabulum. Again fluoroscopy was used to check position of the screws. Next, the liner was then impacted, with a 20 elevated liner located in the anterior superior quadrant. Component locking was confirmed. Attention was then directed to the femur. With the aid of the [place] table, the femur was externally rotated to approximately 130, extended, and adducted under the opposite leg. A side hook was then placed under the proximal femur, and the side hook elevator was used to elevate the proximal femur while releasing the capsule. Retractors were then placed. A capsular release was performed, as well as a release of the conjoined tendon, which afforded excellent visualization of the proximal femur. Next, a box osteotome was used to lateralize the proximal femur. A second hand was then used to locate the femoral canal. Sequential broaching was then performed with appropriate size which afforded excellent fixation in the proximal femur. A trial was then placed with appropriate head and neck, and the hip was gently reduced with the aid of the [place] table. Fluoroscopy was then used to check position of the components, as well as to ensure equal leg lengths. The hip was then gently dislocated and the trials were then removed. Final implants were then impacted and the hip was again reduced. Final fluoroscopic x-rays confirmed that the components were in anatomic position, as well as equal leg lengths. The hip was also taken through range of motion, and found to be stable. The hip was then copiously irrigated with antibiotic solution with pulsatile lavage. The hip was then irrigated with Irrisept solution. The soft tissues were then injected with a ropivacaine solution, which consisted of 246.25 mg of ropivacaine, 0.5 mg of epinephrine, 30 mg of Toradol, 80 g of clonidine, and 48.45 mL of sterile water, for a total of 100 mL of fluid injected. A second dose of 1 g of Tranexamic acid was also given intravenously. Any blood collected by Cell Saver was then returned to the patient at this time. The fascia was then closed with 2-0 strata fix suture. The subcutaneous tissue was closed with 3-0 Vicryl. The subcuticular tissue was closed with 3-0 strata fix suture. The skin was then closed with Exofin skin glue. After the glue and dried, and Optifoam silver impregnated dressing was applied. The patient was then transferred to the recovery room in stable condition. The assistant therapy aide THEODORA Mixon was required due to the complexity of surgery, and the need for skilled registered nurse surgical services for positioning, draping, exposure, retraction, and closure of the wound.
[2021-09-20] MEDS ORDERED: HYDROmorphone 0.2 MG/1 ML SYRINGE IVP PRN (08:51)
[2021-09-20] MEDS ORDERED: ONDANSETRON 4 MG/2 ML VIAL IVP PRN (08:51)
[2021-09-20] MEDS ORDERED: NALOXONE 0.4 MG/ML 1 ML VIAL IV PRN ×2 (08:51→12:35)
[2021-09-20] MEDS ORDERED: HYDROcodone/APAP 7.5-325MG 1 EACH TAB PO PRN (08:54)
--- NOTE | 2021-09-20 09:48 | XR ---
Limited left hip HISTORY: Status post left hip arthroplasty Single frontal view of the left hip Patient is status post left hip arthroplasty. There is anatomic alignment. Lucencies present within t he soft tissues. IMPRESSION: No radiographic complication status post left hip arthroplasty. Follow-up.
--- NOTE | 2021-09-20 11:16 | FL ---
Fluoroscopy HISTORY:. Anterior hip replacement 65 seconds fluoroscopy time supplied to the referring clinician. 4 intraoperative C-arm images docum ent the procedure. See dictated report from orthopedic surgery.
[2021-09-20] MEDS ORDERED: ceFAZolin 10 GM VIAL IVPB ONE (11:18)
[2021-09-20] MEDS ORDERED: hydrOXYzine pamoate 25 MG CAP PO PRN (12:35)
[2021-09-20] MEDS ORDERED: MAGNESIUM HYDROXIDE 2,400 MG/10 ML CUP PO PRN (12:35)
--- NOTE | 2021-09-20 15:38 | P.CONS ---
History of Present Illness - Reason for Consult Consult date: 09/20/21 Medical management Requesting physician: Daniel Evans - Chief Complaint Left hip pain - History of Present Illness This is a very pleasant 70-year-old patient who follows with Dr. Wero Ashton. Chronic stable medical conditions include osteoarthritis, hypothyroid, peripheral neuropathy, insomnia. Insomnia predominantly due to pain. Vision today is under: Left total hip arthroplasty. Pain is controlled. No nausea vomiting. No chest pain or shortness of breath. Denies any cardiac history. Review of systems: GEN.: Tired EYES: None HEENT: None NECK: None RESPIRATORY: None CARDIOVASCULAR: None GASTROINTESTINAL: None GENITOURINARY: Urine stress incontinence MUSCULOSKELETAL: Joint pains LYMPHATICS: None HEMATOLOGICAL: None PSYCHIATRY: None NEUROLOGICAL: Trouble sleeping. Past medical history to include: Sarah arthritis, hypothyroid, peripheral neuropathy, Tasneem's, cervical cancer 9084, Social history: Does not smoke. Alcohol occasionally. Family history: Lung cancer Physical examination: VITAL SIGNS: Afebrile, 90, 18, 93/61, 99% on 2 L GENERAL: BMI 30.8, laying in bed, awake, comfortable. EYES: Pupils equal. Conjunctiva normal. HEENT: External appearance of nose and ears normal, oral cavity grossly normal. NECK: JVD not raised; masses not palpable. HEART: First and second heart sounds are normal; no edema. LUNGS: Respiratory rate normal; clear to auscultation MUSCULOSKELETAL:Dressing over the incision site anteriorly on the left hip. Evidence of OA. ABDOMEN: Soft, nontender, liver spleen not palpable, no masses palpable. PSYCH: Alert and oriented x3; mood and affect normal. NEUROLOGICAL: Cranial nerves grossly intact; no facial asymmetry, power and sensation grossly intact. LYMPHATICS: No lymph nodes palpable in the axilla and neck INVESTIGATIONS, reviewed in the clinical context: [09/12/2021]: WBC 4.5 hemoglobin 14.6 platelets 294 sodium 137 potassium 4.5 BUN 16 creatinine 0.68 Assessment and plan: -Left total hip arthroplasty Aspirin 325 twice a day for DVT prophylaxis. [place] when necessary for pain control along with IV Dilaudid when necessary. -Primary osteoarthritis multiple joints bilaterally Use pain medications as needed -Hypothyroid Synthroid, resume home dose -Peripheral neuropathy, idiopathic Cymbalta 60 mg daily at bedtime -Urinary stress incontinence -Chronic insomnia from pain. Melatonin 3 mg daily at bedtime when necessary Home medications resumed. In control in place. DVT prophylaxis. Activity as per orthopedics. Care was discussed with the patient. Questions answered. Thank you Dr. Evans Past Medical History Past Medical History: Cancer, Osteoarthritis (OA), Thyroid Disorder Additional Past Medical History / Comment(s): Peripheral neuropathy bilat feet/hands, idiopathic. Hashimotos. hx cervical cancer 1983. Hypothyroidism. History of Any Multi-Drug Resistant Organisms: None Reported Past Surgical History: Back Surgery, Breast Surgery, Hysterectomy, Orthopedic Surgery Additional Past Surgical History / Comment(s): Breast biopsies, back surgery X4 w/fusion, arthroscopic right knee surgery. Pain procedures Past Anesthesia/Blood Transfusion Reactions: No Reported Reaction Past Psychological History: No Psychological Hx Reported Smoking Status: Former smoker Past Alcohol Use History: Occasional Additional Past Alcohol Use History / Comment(s): Quit smoking 30+ years ago, smoked on & off for 10 yrs. SMOKED 1/2 PACK A WEEK OR LESS Past Drug Use History: None Reported - Past Family History Father Family Medical History: Cancer Additional Family Medical History / Comment(s): lung Sister(s) Family Medical History: Cancer Additional Family Medical History / Comment(s): Colon Cancer. Brother(s) Family Medical History: Cancer Additional Family Medical History / Comment(s): Pancreatic Cancer. Medications and Allergies Home Medications Medication Instructions Recorded Confirmed Type DULoxetine HCL [Cymbalta] 60 mg PO HS 12/04/16 09/20/21 History Levothyroxine Sodium 25 mcg PO MOTUWETHFR 12/20/20 09/20/21 History Multivitamins, Thera [Multivitamin 1 tab PO DAILY 12/20/20 09/20/21 History (formulary)] Levothyroxine Sodium [Synthroid] 50 mcg PO SUSA 01/06/21 09/20/21 History HYDROcodone/APAP 7.5-325MG [[place] 1 tab PO Q4-6H PRN 07/19/21 09/20/21 History 7.5-325] Cholecalciferol [Vitamin D3 (25 50 mcg PO DAILY 09/16/21 09/20/21 History Mcg = 1000 Iu)] Aspirin 325 mg PO BID #60 tab 09/20/21 Rx HYDROcodone/APAP 7.5-325MG [[place] 1 - 2 tab PO Q6H PRN #32 tab 09/20/21 Rx 7.5-325] Ondansetron Odt [Zofran Odt] 1 tab PO Q8HR PRN #10 tab 09/20/21 Rx Sennosides [Senokot] 2 tab PO DAILY PRN #60 tablet 09/20/21 Rx Allergies Allergy/AdvReac Type Severity Reaction Status Date / Time No Known Allergies Allergy Verified 09/16/21 10:22 Physical Exam Vitals: Vital Signs Temp Pulse Pulse Resp BP BP Pulse Ox 09/20/21 13:28 90 18 93/61 99 09/20/21 12:58 94 18 98/64 100 09/20/21 12:13 94 14 97/63 99 09/20/21 11:35 99 09/20/21 11:32 100 14 87 L 09/20/21 11:19 100 14 92/62 99 09/20/21 10:59 92 14 98/63 99 09/20/21 10:55 89 L 09/20/21 10:31 91 14 97/64 100 09/20/21 10:15 101 H 14 97/63 09/20/21 10:06 96 16 109/54 96 09/20/21 09:51 94 16 104/53 95 09/20/21 09:36 90 16 110/53 97 09/20/21 09:21 92 16 110/55 90 L 09/20/21 09:06 81 16 127/58 95 09/20/21 08:51 96.8 F L 98 14 126/61 94 L 09/20/21 06:02 98.8 F 88 16 120/64 95 Intake and Output 09/20/21 09/20/21 09/20/21 06:59 14:59 22:59 Intake Total 951 1100 Output Total 350 Balance 951 750 Intake: IV 951 1100 Output: Estimated Blood Loss 350 Other: Weight 84 kg 84 kg
[2021-09-20] MEDS: SODIUM CHLORIDE 0.9% 1,000 ML IV SCH (17:03)
[2021-09-20 19:25] VITALS: RESP 16
[2021-09-20] MEDS: ASPIRIN 325 MG TAB PO SCH (19:27)
[2021-09-20] MEDS ORDERED: SENNOSIDES-DOCUSATE SODIUM 1 EACH TAB PO SCH (21:00)
[2021-09-20] MEDS ORDERED: DULoxetine HCL 60 MG CAPSULE.DR PO SCH (21:00)
[2021-09-21] MEDS: SODIUM CHLORIDE 0.9% 1,000 ML IV SCH (04:50)
[2021-09-21] MEDS: HYDROcodone/APAP 7.5-325MG 1 EACH TAB PO PRN ×2 (04:50→10:32)
[2021-09-21] MEDS ORDERED: LEVOTHYROXINE 25 MCG TAB PO SCH (06:30)
--- NOTE | 2021-09-21 07:42 | P.DS ---
Providers Expected date of discharge: 09/21/21 Attending physician: Daniel Evans Consults: 09/20/21 12:35 Consult Physician Routine Consulting Provider: Manish Mortensen Consult Reason/Comments: medical management Do you want consulting provider notified?: Yes Primary care physician: Wero Ashton - Discharge Diagnosis(es) (1) Primary localized osteoarthritis of left hip Current Visit: Yes Status: Acute (2) Status post total hip replacement, left Current Visit: Yes Status: Acute Hospital Course: This is a 70-year-old female with known history of degenerative arthritis of the left hip. The patient presents for evaluation. After discussion and consideration patient elects to proceed with total hip arthroplasty with direct anterior approach. The patient is seen preoperatively by primary care physician and cleared for surgery. Patient is admitted to [facility] on 09/20/2021 for total hip arthroplasty with direct anterior approach. The procedure is performed without complication or sequelae. The patient is doing well postoperatively. Labs and vital signs are stable on day of discharge. On day of discharge patient's hip incision is healing well. There is minimal erythema. There is no drainage noted at this time. There is minimal soft tissue swelling to the hip and thigh. Patient has full foot and ankle motion without difficulty or pain. Neurovascular status to the lower extremity is intact. Patient is discharged to home in good condition. Please see med rec for accurate list of home medications. Patient Condition at Discharge: Good Plan - Discharge Summary Discharge Rx Participant: No New Discharge Prescriptions: New Aspirin 325 mg PO BID #60 tab Sennosides [Senokot] 2 tab PO DAILY PRN #60 tablet PRN Reason: Constipation HYDROcodone/APAP 7.5-325MG [[place] 7.5-325] 1 - 2 tab PO Q6H PRN #32 tab PRN Reason: Pain Ondansetron Odt [Zofran Odt] 1 tab PO Q8HR PRN #10 tab PRN Reason: Nausea No Action DULoxetine HCL [Cymbalta] 60 mg PO HS Multivitamins, Thera [Multivitamin (formulary)] 1 tab PO DAILY Levothyroxine Sodium 25 mcg PO MOTUWETHFR Levothyroxine Sodium [Synthroid] 50 mcg PO SUSA Cholecalciferol [Vitamin D3 (25 Mcg = 1000 Iu)] 50 mcg PO DAILY HYDROcodone/APAP 7.5-325MG [Ang[place] 7.5-325] 1 tab PO Q4-6H PRN PRN Reason: Moderate Pain Discharge Medication List DULoxetine HCL [Cymbalta] 60 mg PO HS 12/04/16 [History] Levothyroxine Sodium 25 mcg PO MOTUWETHFR 12/20/20 [History] Multivitamins, Thera [Multivitamin (formulary)] 1 tab PO DAILY 12/20/20 [History] Levothyroxine Sodium [Synthroid] 50 mcg PO SUSA 01/06/21 [History] HYDROcodone/APAP 7.5-325MG [Ang[place] 7.5-325] 1 tab PO Q4-6H PRN 07/19/21 [History] Cholecalciferol [Vitamin D3 (25 Mcg = 1000 Iu)] 50 mcg PO DAILY 09/16/21 [History] Aspirin 325 mg PO BID #60 tab 09/20/21 [Rx] HYDROcodone/APAP 7.5-325MG [Ang[place] 7.5-325] 1 - 2 tab PO Q6H PRN #32 tab 09/20/21 [Rx] Ondansetron Odt [Zofran Odt] 1 tab PO Q8HR PRN #10 tab 09/20/21 [Rx] Sennosides [Senokot] 2 tab PO DAILY PRN #60 tablet 09/20/21 [Rx] Follow up Appointment(s)/Referral(s): Daniel Evans DO [Doctor of Osteopathic Medicine] - 2 Weeks (IF YOU DO NOT HAVE AN APPOINTMENT MADE YOU WILL NEED TO CALL TO SCHEDULE YOUR FOLLOW UP APPOINTMENT) Patient Instructions/Handouts: *Surgery [facility] - (Anesthesia) Discharge Instructions Outpatient Surgery, Anterior Hip Replacement (DC) Activity/Diet/Wound Care/Special Instructions: Weightbearing as tolerated with walker. Leave dressing intact. Dressing may be removed by home care nurse or by patient in 7 days. Then change dressing twice daily until follow up. May shower with initial dressing intact and after removal. If dressing become saturated, please remove. Please take aspirin 325mg twice daily for 30 days to prevent blood clots. Recommend use of compression stockings daily until follow up to help prevent swelling and blood clots. May remove at night before sleeping. Please follow-up with [facility] in 2 weeks and call with any questions or concerns, . Discharge Disposition: HOME WITH HOME HEALTH SERVICES
[2021-09-21 08:23] VITALS: BP 95/59; PULSE 95; TEMP 98.5
[2021-09-21] MEDS ORDERED: CHOLECALCIFEROL 25 MCG (1000 IU) TABLET PO SCH (09:00)
[2021-09-21] MEDS ORDERED: MULTIVITAMINS, THERA 1 EACH TAB PO SCH (09:00)
[2021-09-21 09:43] LABS: Basophils # (A) 0.01 X 10*3/uL (0.00-0.10); Basophils % (A) 0.1 %; Eosinophils # (A) 0.04 X 10*3/uL (0.04-0.35); Eosinophils % (A) 0.6 %; HCT 31.2 % (37.2-46.3); HGB 10.1 g/dL (12.0-15.0); Lymphocytes # (A) 1.31 X 10*3/uL (0.90-5.00); Lymphocytes % (A) 18.8 %; MCH 32.8 pg (27.0-32.0); MCHC 32.4 g/dL (32.0-37.0); MCV 101.3 fL (80.0-97.0); Mean Platelet Volume 9.8 fL (9.5-12.2); Monocytes # (A) 1.03 X 10*3/uL (0.20-1.00); Monocytes % (A) 14.8 %; Neutrophils # (A) 4.56 X 10*3/uL (1.80-7.70); Neutrophils % (A) 65.4 %; Platelet Count 172 X 10*3/uL (140-440); RBC 3.08 X 10*6/uL (4.10-5.20); RDW 13.2 % (11.5-14.5); WBC 6.97 X 10*3/uL (4.50-10.00)
[2021-09-21] MEDS: ASPIRIN 325 MG TAB PO SCH (09:46)
[2021-09-24] MEDS ORDERED: LEVOTHYROXINE 50 MCG TAB PO SCH (06:30)
== END 2021-09-21 10:54 | disposition home health service (06) ==
LOC: OR 05:33 → 4SSUR 08:51 → OR 09-21 10:54
PROVIDERS: ATTEND Orthopaedic Surgery
DX: M16.12 Unilateral primary osteoarthritis, left hip (principal); E03.9 Hypothyroidism, unspecified; R00.2 Palpitations; E06.3 Autoimmune thyroiditis; G62.9 Polyneuropathy, unspecified; R26.81 Unsteadiness on feet; K21.9 Gastro-esophageal reflux disease without esophagitis; F51.04 Psychophysiologic insomnia; G47.01 Insomnia due to medical condition; M19.071 Primary osteoarthritis, right ankle and foot; N39.3 Stress incontinence (female) (male); R63.5 Abnormal weight gain; Z85.41 Personal history of malignant neoplasm of cervix uteri; Z90.710 Acquired absence of both cervix and uterus; Z98.1 Arthrodesis status; Z97.3 Presence of spectacles and contact lenses; Z98.890 Other specified postprocedural states; Z83.3 Family history of diabetes mellitus; Z80.0 Family history of malignant neoplasm of digestive organs; Z82.49 Family history of ischemic heart disease and other diseases of the circulatory system; Z87.891 Personal history of nicotine dependence; Z80.1 Family history of malignant neoplasm of trachea, bronchus and lung; Z79.890 Hormone replacement therapy; Z79.891 Long term (current) use of opiate analgesic; Z79.899 Other long term (current) drug therapy; Z79.82 Long term (current) use of aspirin
CPT/HCPCS: 97161; 97535; 97165; 86891; 85025; 88300; 73501; 27130; C1776; J2250; J1644; J1100; J2710; J0690 ×2; J2405; J2001; J3010; J1170; J2370; J0330; J2704; 86850; 86900; 86901

== ENCOUNTER → 2021-12-01 | Outpatient (CLI) | payer MEDICARE, OTHER ==
--- NOTE | 2021-12-05 12:17 | MM ---
Reason for exam: screening (asymptomatic). Last mammogram was performed 2 years and 9 months ago. History: Patient is postmenopausal and has history of other cancer at age 33. Family history of breast cancer in paternal aunt and breast cancer in paternal cousin. Benign right mammotome panel of the right breast, March 18, 2012. Benign excisional biopsy of the left breast, 1989. Physical Findings: A clinical breast exam by your physician is recommended on an annual basis and results should be correlated with mammographic findings. MG 3D Screening Mammo W/Cad Bilateral CC, MLO, and XCCL view(s) were taken. Prior study comparison: March 13, 2019, left breast MG 3d work up w/cad LT. March 10, 2019, bilateral MG 3d screening mammo w/cad. The breast tissue is heterogeneously dense. This may lower the sensitivity of mammography. Previous mammotome biopsy in the right breast. There is no discrete abnormality. ASSESSMENT: Benign, BI-RAD 2 RECOMMENDATION: Routine screening mammogram of both breasts in 1 year.
== END | disposition home or self-care (01) ==
LOC: RADMAMWWP 16:16
PROVIDERS: ATTEND Family Medicine
DX: Z12.31 Encounter for screening mammogram for malignant neoplasm of breast (principal); Z80.3 Family history of malignant neoplasm of breast; Z78.0 Asymptomatic menopausal state
CPT/HCPCS: 77063; 77067

== ENCOUNTER → 2022-01-24 | Outpatient (CLI) | payer MEDICARE, OTHER ==
--- NOTE | 2022-01-24 19:25 | BD ---
EXAMINATION TYPE: Axial Bone Density DATE OF EXAM: 01/24/2022 COMPARISON: 2019 CLINICAL HISTORY: screening Height: 5'5 Weight: 183 FRAX RISK QUESTIONS: Secondary Osteoporosis: 3. Menopause before 46: y RISK FACTORS HISTORY OF: Surgery to Spine/Hip(left)/): spine 2018, left total hip 09/2021 When: Family History of Osteoporosis: y Diet low in dairy products/other sources of calcium: y Postmenopausal woman: y MEDICATIONS: Thyroid Medications: Which medication: Levothyroxine How Lon years Additional Medications: neuropathy , Additional History: cervical cancer , EXAM MEASUREMENTS: Bone mineral densitometry was performed using the Rollad System. Bone mineral density about the R hip (g/cm2): 1.126 T Score values are as follows: -----R Neck: 0.4 -----R Total: 0.9 Bone mineral density has: Increased 2.2% since study of: 03/10/2019 Bone mineral density about the L Wrist (g/cm2): 0.681 T Score values are as follows: -----Dist. R+U: -0.1 -----Prox. R+U: -0.5 -----Radius total: 0.1 Bone mineral density has: Decreased -6.0% since study of: 03/10/2019 IMPRESSION: Normal (Values between +1 and -1 indicate normal bone mass). Consider repeating this study in 5 year s or sooner if there is some new clinical indication. NOTE: T-SCORE=SD OF THE YOUNG ADULT MEAN.
== END | disposition home or self-care (01) ==
LOC: RADBDWWP 14:47
PROVIDERS: ATTEND Family Medicine
DX: Z13.820 Encounter for screening for osteoporosis (principal); Z78.0 Asymptomatic menopausal state
CPT/HCPCS: 77080

== ENCOUNTER 2022-09-08 09:47 | Day surgery (SDC) | payer MEDICARE, OTHER ==
[2022-09-06 08:18] VITALS: BMI 29.5
[2022-09-08 10:42] VITALS: TEMP 97.6
[2022-09-08] MEDS: LACTATED RINGERS 1,000 ML IV SCH ×2 (10:47→11:32)
[2022-09-08] MEDS ORDERED: PROPOFOL 10 MG/ML 20 ML VIAL IV ONE (11:40)
--- NOTE | 2022-09-08 11:59 | P.PCN ---
Date of Procedure: 09/08/22 Procedure(s) Performed: BRIEF HISTORY: Patient is a 71-year-old pleasant white female scheduled for an elective colonoscopy as a part of evaluation of abnormal CAT scan that showed thickening of the colon. Patient is asymptomatic PROCEDURE PERFORMED: Colonoscopy with snare polypectomy. PREOPERATIVE DIAGNOSIS: Abnormal CAT scan showing thickening of the left colon. IV sedation per Anesthesia. PROCEDURE: After informed consent was obtained, the patient, was brought into the endoscopy unit. IV sedation was administered by Anesthesia under continuous monitoring. Digital rectal examination was normal. Initially the Olympus CF-160 flexible video colonoscope was then inserted in the rectum, gradually advanced into the cecum without any difficulty. Careful examination was performed as the scope was gradually being withdrawn. Ileocecal valve and the appendiceal orifice were visualized and appeared normal. Prep was excellent. Mucosa of the cecum had a 5 mm sessile polyp removed by polypectomy. Rest of the in the distal rectum there was another 5 mm sessile polyp removed by snare polypectomy., ascending colon, transverse colon, descending colon, sigmoid colon, and rectum appeared normal. Retroflexion was performed in the rectum and no lesions were seen. The patient tolerated the procedure well. IMPRESSION: 5 mm cecal polyp status post snare polypectomy 5 mm rectal polyp status post polypectomy Rest of the colon appeared normal RECOMMENDATIONS: Findings of this examination were discussed with the patient as well as her family. She was advised to follow with the biopsy results. If the biopsy results adenoma she can have a repeat colonoscopy in 5 years.
[2022-09-08 12:30] VITALS: BP 121/83; PULSE 78; RESP 15
== END 2022-09-08 13:03 | disposition home or self-care (01) ==
LOC: ORWHC2ENDO 09:47
PROVIDERS: ATTEND Internal Medicine Gastroenterology
DX: D12.0 Benign neoplasm of cecum (principal); D12.8 Benign neoplasm of rectum
CPT/HCPCS: 88305; 45385; 45380; J2704

== ENCOUNTER 2023-02-17 05:51 | Inpatient (IN) | payer MEDICARE, OTHER ==
[2023-02-17 06:54] LABS: Basophils % (A) 0 %; Eosinophils # (A) 0.1 k/uL (0-0.7); Eosinophils % (A) 1 %; HGB 14.8 gm/dL (11.4-16.0); Lymphocytes # (A) 0.5 k/uL (1.0-4.8); Lymphocytes % (A) 5 %; MCH 32.3 pg (25.0-35.0); MCHC 33.7 g/dL (31.0-37.0); Mean Platelet Volume 7.2; Monocytes # (A) 0.4 k/uL (0-1.0); Monocytes % (A) 4 %; Neutrophils # (A) 9.5 k/uL (1.3-7.7); Neutrophils % (A) 90 %; Platelet Count 252 k/uL (150-450); RBC 4.58 m/uL (3.80-5.40); RDW 13.6 % (11.5-15.5); WBC 10.6 k/uL (3.8-10.6)
[2023-02-17 07:08] LABS: ALT 90 U/L (4-34); AST 159 U/L (14-36); African American GFR (CKD) >90 (>60 ml/min/1.73 sqM); Albumin 4.3 g/dL (3.5-5.0); Alkaline Phosphatase 79 U/L (38-126); Amylase 41 U/L (30-110); Anion Gap 7 mmol/L; Blood Urea Nitrogen 13 mg/dL (7-17); Carbon Dioxide 26 mmol/L (22-30); Chloride 104 mmol/L (98-107); Glucose 150 mg/dL (74-99); Lipase 58 U/L (23-300); Non-African American GFR(CKD) >90 (>60 ml/min/1.73 sqM); Potassium 4.2 mmol/L (3.5-5.1); Sodium 137 mmol/L (137-145); Total Bilirubin 1.4 mg/dL (0.2-1.3)
--- NOTE | 2023-02-17 07:18 | ED ---
Abdominal Pain HPI - General Chief Complaint: Abdominal Pain Stated Complaint: Stomach pain Time Seen by Provider: 02/17/23 06:35 Source: patient, RN notes reviewed Mode of arrival: ambulatory Limitations: no limitations - History of Present Illness Initial Comments: 72-year-old female presents emergency Department with chief complaint of upper abdominal pain. Patient states started after eating she has been having some issues for a while states that usually alleviates. Patient states she has pressure bloating her abdomen. Patient states her pain is primarily located in the right upper quadrant. Patient states this rates her back. Denies fever or chills she did have some nausea without VOMITING PATIENT STATES SHE WAS TOLD BY HER PCP THAT SHE HAD AN ABNORMAL CT AND 8 NEEDED TO WATCH HER GALLBLADDER. PATIENT STATES THAT SHE CANNOT TOLERATE SYMPTOMS CURRENTLY. NO DYSURIA NO HEMATURIA - Related Data Home Medications Medication Instructions Recorded Confirmed DULoxetine HCL [Cymbalta] 60 mg PO HS 12/04/16 09/08/22 Levothyroxine Sodium 25 mcg PO MOTUWETHFR 12/20/20 09/08/22 Multivitamins, Thera [Multivitamin 1 tab PO DAILY 12/20/20 09/08/22 (formulary)] Levothyroxine Sodium [Synthroid] 50 mcg PO SUSA 01/06/21 09/08/22 Tolterodine ER [Detrol LA] 4 mg PO DAILY 09/06/22 09/08/22 Allergies Allergy/AdvReac Type Severity Reaction Status Date / Time No Known Allergies Allergy Verified 02/17/23 06:23 Review of Systems ROS Statement: Those systems with pertinent positive or pertinent negative responses have been documented in the HPI. ROS Other: All systems not noted in ROS Statement are negative. Past Medical History Past Medical History: Cancer, Osteoarthritis (OA), Thyroid Disorder Additional Past Medical History / Comment(s): Peripheral neuropathy, hx. cervical cancer 1983. having lt nicole in September by Dr. Daniel Evans History of Any Multi-Drug Resistant Organisms: None Reported Past Surgical History: Back Surgery, Breast Surgery, Hysterectomy, Orthopedic Surgery Additional Past Surgical History / Comment(s): Breast biopsies, back surgery X3 w/fusion, arthroscopic right knee surgery. pain clinic procedure, hip replacement 2020 Past Anesthesia/Blood Transfusion Reactions: No Reported Reaction Past Psychological History: No Psychological Hx Reported Smoking Status: Former smoker Past Alcohol Use History: None Reported Past Drug Use History: None Reported - Past Family History Father Family Medical History: Cancer Additional Family Medical History / Comment(s): lung Sister(s) Family Medical History: Cancer Additional Family Medical History / Comment(s): Colon Cancer. Brother(s) Family Medical History: Cancer Additional Family Medical History / Comment(s): Pancreatic Cancer. General Exam Limitations: no limitations General appearance: alert, in no apparent distress Head exam: Present: atraumatic, normocephalic, normal inspection Eye exam: Present: normal appearance, PERRL, EOMI. Absent: scleral icterus, conjunctival injection, periorbital swelling ENT exam: Present: normal exam, normal oropharynx, mucous membranes moist Neck exam: Present: normal inspection, full ROM. Absent: tenderness, meningismus, lymphadenopathy Respiratory exam: Present: normal lung sounds bilaterally. Absent: respiratory distress, wheezes, rales, rhonchi, stridor Cardiovascular Exam: Present: regular rate, normal rhythm, normal heart sounds. Absent: systolic murmur, diastolic murmur, rubs, gallop, clicks GI/Abdominal exam: Present: soft, tenderness (Right upper quadrant), normal bowel sounds. Absent: distended, guarding, rebound, rigid Course Vital Signs 02/17/23 06:17 Temperature 98.4 F Pulse Rate 89 Respiratory 18 Rate Blood Pressure 165/100 O2 Sat by Pulse 97 Oximetry Medical Decision Making - Medical Decision Making Was pt. sent in by a medical professional or institution (THEODORA Nath, LITERACY COACH, urgent care, hospital, or snf...) When possible be specific @ -No Did you speak to anyone other than the patient for history (EMS, parent, family, police, friend...)? What history was obtained from this source @ -No Did you review nursing and triage notes (agree or disagree)? Why? @ -I reviewed and agree with nursing and triage notes Were old charts reviewed (outside hosp., previous admission, EMS record, old EKG, old radiological studies, urgent care reports/EKG's, snf records)? Report findings @ -No old charts were reviewed Differential Diagnosis (chest pain, altered mental status, abdominal pain women, abdominal pain men, vaginal bleeding, weakness, fever, dyspnea, syncope, headache, dizziness, GI bleed, back pain, seizure, CVA, palpatations, mental health, musculoskeletal)? @ -Differential Abdominal Pain Men: Appendicitis, cholecystitis, diverticulosis, ischemic bowel, pancreatitis, hepatitis, UTI, gastroenteritis, AAA, incarcerated hernia, bowel obstruction, constipation, inflammatory bowel, hepatitis, peptic ulcer disease, splenic infarction, perforated viscus, testicular torsion, this is not meant to be an all-inclusive list EKG interpreted by me (3pts min.). @ -As above X-rays interpreted by me (1pt min.). @ -None done CT interpreted by me (1pt min.). @ -None done U/S interpreted by me (1pt. min.). @ -Ultrasound shows dilated gallbladder, gallstones noted, minimal dilated gallbladder for patient's age What testing was considered but not performed or refused? (CT, X-rays, U/S, labs)? Why? @ -None What meds were considered but not given or refused? Why? @ -None Did you discuss the management of the patient with other professionals (professionals i.e. , PA, LITERACY COACH, lab, RT, psych nurse, school social worker, market reporter, teacher, bsa officer, community case manager)? Give summary @ -Dr. Greer on-call surgeon in which the patient may be admitted versus discharge based on clinical findings. Patient is stable. Patient is uncomfortable with discharge given her discomfort. I also discuss case with Dr. lester for admission. Was smoking cessation discussed for >3mins.? @ -No Was critical care preformed (if so, how long)? @ -No Were there social determinants of health that impacted care today? How? (Homelessness, low income, unemployed, alcoholism, drug addiction, transpo rtation, low edu. Level, literacy, decrease access to med. care, group home, rehab)? @ -No Was there de-escalation of care discussed even if they declined (Discuss DNR or withdrawal of care, Hospice)? DNR status @ -No What co-morbidities impacted this encounter? (DM, HTN, Smoking, COPD, CAD, Cancer, CVA, ARF, Chemo, Hep., AIDS, mental health diagnosis, sleep apnea, morbid obesity)? @ -None Was patient admitted / discharged? Hospital course, mention meds given and route, prescriptions, significant lab abnormalities, going to OR and other pertinent info. @ -hospital course Undiagnosed new problem with uncertain prognosis? @ -No Drug Therapy requiring intensive monitoring for toxicity (Heparin, Nitro, Insulin, Cardizem)? @ -No Were any procedures done? @ -No Diagnosis/symptom? @ -Symptomatic cholelithiasis, intractable abdominal pain Acute, or Chronic, or Acute on Chronic? @ -Acute Uncomplicated (without systemic symptoms) or Complicated (systemic symptoms)? @ -Uncomplicated Side effects of treatment? @ -No Exacerbation, Progression, or Severe Exacerbation? @ -No Poses a threat to life or bodily function? How? (Chest pain, USA, [place], pneumonia, PE, COPD, DKA, ARF, appy, cholecystitis, CVA, Diverticulitis, Homicidal, Suicidal, threat to staff... and all critical care pts) @ -No - Lab Data Result diagrams: 02/17/23 06:38 02/17/23 06:38 Lab Results 02/17/23 02/17/23 Range/Units 06:38 06:38 WBC 10.6 (3.8-10.6) k/uL RBC 4.58 (3.80-5.40) m/uL Hgb 14.8 (11.4-16.0) gm/dL Hct 44.0 (34.0-46.0) % MCV 96.0 (80.0-100.0) fL MCH 32.3 (25.0-35.0) pg MCHC 33.7 (31.0-37.0) g/dL RDW 13.6 (11.5-15.5) % Plt Count 252 (150-450) k/uL MPV 7.2 Neutrophils % 90 % Lymphocytes % 5 % Monocytes % 4 % Eosinophils % 1 % Basophils % 0 % Neutrophils # 9.5 H (1.3-7.7) k/uL Lymphocytes # 0.5 L (1.0-4.8) k/uL Monocytes # 0.4 (0-1.0) k/uL Eosinophils # 0.1 (0-0.7) k/uL Basophils # 0.0 (0-0.2) k/uL Sodium 137 (137-145) mmol/L Potassium 4.2 (3.5-5.1) mmol/L Chloride 104 (98-107) mmol/L Carbon Dioxide 26 (22-30) mmol/L Anion Gap 7 mmol/L BUN 13 (7-17) mg/dL Creatinine 0.64 (0.52-1.04) mg/dL Est GFR (CKD-EPI)AfAm >90 (>60 ml/min/1.73 sqM) Est GFR (CKD-EPI)NonAf >90 (>60 ml/min/1.73 sqM) Glucose 150 H (74-99) mg/dL Calcium 9.0 (8.4-10.2) mg/dL Total Bilirubin 1.4 H (0.2-1.3) mg/dL AST 159 H (14-36) U/L ALT 90 H (4-34) U/L Alkaline Phosphatase 79 (38-126) U/L Total Protein 7.0 (6.3-8.2) g/dL Albumin 4.3 (3.5-5.0) g/dL Amylase 41 (30-110) U/L Lipase 58 (23-300) U/L - EKG Data -: EKG Interpreted by [facility] EKG Comments: EKG performed at 6:27 sinus rhythm rate of 75 MS 195/89 QT/QTC 391/420 Disposition Clinical Impression: Abdominal pain, Cholelithiasis Disposition: ADMITTED IP TO THIS HOSP Condition: Fair Referrals: Wero Ashton MD [Primary Care Provider] - 1-2 days Time of Disposition: 08:20
--- NOTE | 2023-02-17 07:39 | US ---
EXAMINATION TYPE: US gallbladder DATE OF EXAM: 02/17/2023 COMPARISON: NONE CLINICAL HISTORY: pain. Pt states RUQ pain TECHNIQUE: Multiple sonographic images of the right upper quadrant are obtained. FINDINGS: EXAM MEASUREMENTS: Liver Length: 15.6 cm Gallbladder Wall: 0.2 cm CBD: 0.9 cm Right Kidney: 10.8 x 4.9 x 4.9 cm CDL TRUCK DRIVER NOTES: Large pt body habitus Pancreas: wnl, tail obscured by overlying bowel gas Liver: Visualized portions appeared wnl Gallbladder: Distended with sludge, and large mobile gallstone= 2.6 cm Evidence for sonographic Mata's sign: Yes CBD: Mildly dilated for pt's age Right Kidney: No evidence of hydro, lower pole gassed out There is large dependent gallstone with surrounding gallbladder sludge and/or small stones per techno logist, latter less well seen. No abnormal wall thickening or adjacent fluid. Gallbladder has distend ed margins. IMPRESSION: Gallstones without convincing secondary ultrasound evidence for acute cholecystitis. Ther e is mild extrahepatic biliary dilatation and the gallbladder has distended margins, in patient with right upper quadrant pain it is not entirely excluded. Consider HIDA scan follow-up to further evalua te.
[2023-02-17] MEDS: ONDANSETRON 4 MG/2 ML VIAL IVP PRN (08:35)
[2023-02-17] MEDS: HYDROmorphone 0.5 MG/0.5 ML SYRINGE IVP PRN ×2 (08:38→20:38)
[2023-02-17] MEDS ORDERED: NALOXONE 0.4 MG/ML 1 ML VIAL IV PRN (08:39)
--- NOTE | 2023-02-17 12:34 | P.HPIM ---
History of Present Illness This is a pleasant 72 years old female with past medical history of Osteoarthritis (OA), hypothyroidism, cervical cancer in 1983 Patient presents because of right upper quadrant abdominal pain started last night. At 7/10 in severity with rotating slightly to the back, felt like sharp and tightness. She states that she has issues with gallbladder for a while now. She denies vomiting but she has nausea. She had normal bowel movement She denies any change in her urine habits, no chest pain or dyspnea. No headache weakness or numbness. She denies smoking alcohol or illicit drugs Vitas looks stable and afebrile unremarkable cbc, bmp. liver enzymes elevated with ast 159 and alt 90. lipase is normal at 58. rest of bmp and amylase is normal. ekg showing normal sinus rhythm at [address]-t changes Bladder ultrasound: Gallstones without Fulvicin secondary ultrasound evidence for acute cholecystitis. There is mild extrahepatic biliary dilatation and the gallbladder has distended margins in patient with right upper quadrant abdominal pain it is not entirely exclude it Review of Systems Review of systems CONSTITUTIONAL: No fever, no malaise, no fatigue. HEENT: No recent visual problems or hearing problems. Denied any sore throat. CARDIOVASCULAR: No orthopnea, PND, no palpitations, no syncope. PULMONARY: No shortness of breath, no cough, no hemoptysis. GASTROINTESTINAL: No diarrhea, no vomiting, Normoactive bowel sounds. NEUROLOGICAL: No headaches, no weakness, no numbness. HEMATOLOGICAL: Denies any bleeding or petechiae. GENITOURINARY: Denies any burning micturition, frequency, or urgency. MUSCULOSKELETAL/RHEUMATOLOGICAL: Denies any joint pain, swelling, or any muscle pain. ENDOCRINE: Denies any polyuria or polydipsia. Past Medical History Past Medical History: Cancer, Osteoarthritis (OA), Thyroid Disorder Additional Past Medical History / Comment(s): Peripheral neuropathy, hx. cervical cancer 1983. having lt nicole in September by Dr. Daniel Evans History of Any Multi-Drug Resistant Organisms: None Reported Past Surgical History: Back Surgery, Breast Surgery, Hysterectomy, Orthopedic Surgery Additional Past Surgical History / Comment(s): Breast biopsies, back surgery X3 w/fusion, arthroscopic right knee surgery. pain clinic procedure, hip replacement 2020 Past Anesthesia/Blood Transfusion Reactions: No Reported Reaction Past Psychological History: No Psychological Hx Reported Smoking Status: Former smoker Past Alcohol Use History: None Reported Past Drug Use History: None Reported - Past Family History Father Family Medical History: Cancer Additional Family Medical History / Comment(s): lung Sister(s) Family Medical History: Cancer Additional Family Medical History / Comment(s): Colon Cancer. Brother(s) Family Medical History: Cancer Additional Family Medical History / Comment(s): Pancreatic Cancer. Medications and Allergies Home Medications Medication Instructions Recorded Confirmed Type DULoxetine HCL [Cymbalta] 60 mg PO DAILY 12/04/16 02/17/23 History Levothyroxine Sodium 25 mcg PO MOTUWETHFR 12/20/20 02/17/23 History Multivitamins, Thera [Multivitamin 1 tab PO DAILY 12/20/20 02/17/23 History (formulary)] Cholecalciferol [Vitamin D3 (25 50 mcg PO DAILY 02/17/23 02/17/23 History Mcg = 1000 Iu)] Levothyroxine Sodium [Synthroid] 50 mcg PO SUSA 02/17/23 02/17/23 History Allergies Allergy/AdvReac Type Severity Reaction Status Date / Time No Known Allergies Allergy Verified 02/17/23 11:49 Physical Exam Vitals: Vital Signs Temp Pulse Resp BP Pulse Ox 02/17/23 08:34 97.7 F 87 16 140/77 95 02/17/23 06:17 98.4 F 89 18 165/100 97 Intake and Output 02/16/23 02/17/23 02/17/23 22:59 06:59 14:59 Other: Weight 81.647 kg GENERAL: The patient is alert and oriented x3, not in any acute distress. Well developed, well nourished. HEENT: Pupils are round and equally reacting to light. EOMI. No scleral icterus. No conjunctival pallor. Normocephalic, atraumatic. No pharyngeal erythema. No thyromegaly. CARDIOVASCULAR: S1 and S2 present. No murmurs, rubs, or gallops. PULMONARY: Chest is clear to auscultation, no wheezing or crackles. -ABDOMEN: Soft, RUQ tenderness, no rebound tenderness or guarding, nondistended, normoactive bowel sounds. No palpable organomegaly. MUSCULOSKELETAL: No joint swelling or deformity. EXTREMITIES: No cyanosis, clubbing, or pedal edema. NEUROLOGICAL: Gross neurological examination did not reveal any focal deficits. SKIN: No rashes. no petechiae. Results CBC & Chem 7: 02/17/23 06:38 02/17/23 06:38 Labs: Abnormal Lab Results - Last 24 Hours (Table) 02/17/23 02/17/23 Range/Units 06:38 06:38 Neutrophils # 9.5 H (1.3-7.7) k/uL Lymphocytes # 0.5 L (1.0-4.8) k/uL Glucose 150 H (74-99) mg/dL Total Bilirubin 1.4 H (0.2-1.3) mg/dL AST 159 H (14-36) U/L ALT 90 H (4-34) U/L Assessment and Plan Assessment: Acute cholecystitis is highly suspected Hypothyroidism History of osteoarthritis Plan: bowel rest Pain medication IV fluids Antibiotic Surgery to consult Labs and medication were reviewed.. Continue same treatment. Continue with symptomatic treatment. Resume home medication. Monitor labs and vitals. DVT and GI prophylaxis. Further recommendations as per clinical course of the patient DVT prophylaxis: Subcutaneous heparin GI Prophylaxis: Pepcid Prognosis is guarded
[2023-02-17] MEDS: LEVOTHYROXINE 25 MCG TAB PO SCH (13:40)
[2023-02-17] MEDS: SODIUM CHLORIDE 0.9% 1,000 ML IV SCH ×2 (14:00→22:01)
[2023-02-17] MEDS: PIPERACILLIN-TAZOBACTAM 3.375 GM in SODIUM CHLORIDE 0.9% 100 ML IVPB SCH ×2 (14:00→22:35)
[2023-02-17] MEDS: ACETAMINOPHEN TAB 325 MG TAB PO PRN (18:24)
--- NOTE | 2023-02-17 20:05 | P.GSCN ---
History of Present Illness Consult date: 02/17/23 Reason for Consult: cholelithiasis, distended gallbladder History of present illness: Developed bloating & upper abdominal aching that woke her from sleep. Had associated nausea. Has had similar symptoms but not as severe, intermittently for the past 2 years. Doesn't notice much of an association with spicy, greasy foods but doesn't eat much of them. No issues with bowel function. US revealed distended GB with 2.6cm mobile stone. Feeling better than she was this morning. Pain nearly resolved. Review of Systems - Constitutional Denies chronic pain - EENT Ears: deny: decreased hearing - Cardiovascular Denies high blood pressure, Denies irregular heart beat - Respiratory Denies home oxygen - Gastrointestinal Reports abdominal pain, Reports bloating, Reports nausea - Musculoskeletal Musculoskeleta Comment(s): chronic back issues requiring multiple back surgeries - Neurological Denies seizures - Endocrine Endocrine Comment(s): thyroid disorder Past Medical History Past Medical History: Cancer, Osteoarthritis (OA), Thyroid Disorder Additional Past Medical History / Comment(s): Peripheral neuropathy, hx. cervical cancer 1983. having lt nicole in September by Dr. Daniel Evans History of Any Multi-Drug Resistant Organisms: None Reported Past Surgical History: Back Surgery, Breast Surgery, Hysterectomy, Orthopedic Surgery Additional Past Surgical History / Comment(s): Breast biopsies, back surgery X3 w/fusion, arthroscopic right knee surgery. pain clinic procedure, hip replacement 2020 Past Anesthesia/Blood Transfusion Reactions: No Reported Reaction Past Psychological History: No Psychological Hx Reported Smoking Status: Former smoker Past Alcohol Use History: None Reported Past Drug Use History: None Reported - Past Family History Father Family Medical History: Cancer, Diabetes Mellitus, Hypertension Additional Family Medical History / Comment(s): lung (father), pancreatic (brother), colon (sister), breast (father's side of family) Sister(s) Family Medical History: Cancer Additional Family Medical History / Comment(s): Colon Cancer. Brother(s) Family Medical History: Cancer Additional Family Medical History / Comment(s): Pancreatic Cancer. Medications and Allergies Home Medications Medication Instructions Recorded Confirmed Type DULoxetine HCL [Cymbalta] 60 mg PO DAILY 12/04/16 02/17/23 History Levothyroxine Sodium 25 mcg PO MOTUWETHFR 12/20/20 02/17/23 History Multivitamins, Thera [Multivitamin 1 tab PO DAILY 12/20/20 02/17/23 History (formulary)] Cholecalciferol [Vitamin D3 (25 50 mcg PO DAILY 02/17/23 02/17/23 History Mcg = 1000 Iu)] Levothyroxine Sodium [Synthroid] 50 mcg PO SUSA 02/17/23 02/17/23 History Allergies Allergy/AdvReac Type Severity Reaction Status Date / Time No Known Allergies Allergy Verified 02/17/23 11:49 Surgical - Exam Vital Signs Temp Pulse Resp BP Pulse Ox 98.4 F 89 18 165/100 97 02/17/23 06:17 02/17/23 06:17 02/17/23 06:17 02/17/23 06:17 02/17/23 06:17 - General well developed, well nourished, no distress, no pain - Eyes no icteric - ENT no hearing loss - Neck supple - Respiratory normal expansion, normal respiratory effort, clear to auscultation - Cardiovascular Rhythm: regular Abnormal Heart Sounds: no systolic murmur, no diastolic murmur - Abdomen Abdomen: soft, non tender, no guarding, no rigid, no rebound, no distended - Neurologic no gross deficits - Psychiatric cooperative, normal affect, appropriate insight & judgement Results - Labs 02/17/23 06:38 02/17/23 06:38 Abnormal Lab Results - Last 24 Hours (Table) 02/17/23 02/17/23 Range/Units 06:38 06:38 Neutrophils # 9.5 H (1.3-7.7) k/uL Lymphocytes # 0.5 L (1.0-4.8) k/uL Glucose 150 H (74-99) mg/dL Total Bilirubin 1.4 H (0.2-1.3) mg/dL AST 159 H (14-36) U/L ALT 90 H (4-34) U/L Diabetes panel 02/17/23 Range/Units 06:38 Sodium 137 (137-145) mmol/L Potassium 4.2 (3.5-5.1) mmol/L Chloride 104 (98-107) mmol/L Carbon Dioxide 26 (22-30) mmol/L BUN 13 (7-17) mg/dL Creatinine 0.64 (0.52-1.04) mg/dL Glucose 150 H (74-99) mg/dL Calcium 9.0 (8.4-10.2) mg/dL AST 159 H (14-36) U/L ALT 90 H (4-34) U/L Alkaline Phosphatase 79 (38-126) U/L Total Protein 7.0 (6.3-8.2) g/dL Albumin 4.3 (3.5-5.0) g/dL Calcium panel 02/17/23 Range/Units 06:38 Calcium 9.0 (8.4-10.2) mg/dL Albumin 4.3 (3.5-5.0) g/dL Pituitary panel 02/17/23 Range/Units 06:38 Sodium 137 (137-145) mmol/L Potassium 4.2 (3.5-5.1) mmol/L Chloride 104 (98-107) mmol/L Carbon Dioxide 26 (22-30) mmol/L BUN 13 (7-17) mg/dL Creatinine 0.64 (0.52-1.04) mg/dL Glucose 150 H (74-99) mg/dL Calcium 9.0 (8.4-10.2) mg/dL Adrenal panel 02/17/23 Range/Units 06:38 Sodium 137 (137-145) mmol/L Potassium 4.2 (3.5-5.1) mmol/L Chloride 104 (98-107) mmol/L Carbon Dioxide 26 (22-30) mmol/L BUN 13 (7-17) mg/dL Creatinine 0.64 (0.52-1.04) mg/dL Glucose 150 H (74-99) mg/dL Calcium 9.0 (8.4-10.2) mg/dL Total Bilirubin 1.4 H (0.2-1.3) mg/dL AST 159 H (14-36) U/L ALT 90 H (4-34) U/L Alkaline Phosphatase 79 (38-126) U/L Total Protein 7.0 (6.3-8.2) g/dL Albumin 4.3 (3.5-5.0) g/dL - Imaging US - abdomen: report reviewed Assessment and Plan Assessment: abdominal pain, improved cholelithiasis with distended gallbladder - no signs of acute cholecystitis on imaging - no leukocytosis Plan: Discussed surgical & non surgical options. Details of surgery discussed with patient. Tentatively plan for cholecystectomy Sunday, if can get scheduled. Otherwise, if feeling well & tolerates PO challenge, could consider outpatient follow up & surgery. Will re-evaluate tomorrow. Time with Patient: Less than 30
[2023-02-17] MEDS: FAMOTIDINE 20 MG/2 ML VIAL IV SCH (20:37)
[2023-02-17] MEDS: HEPARIN SODIUM,PORCINE/PF 5,000 UNIT/0.5 ML SYRINGE SQ SCH (20:38)
[2023-02-18] MEDS: ONDANSETRON 4 MG/2 ML VIAL IVP PRN ×3 (03:52→20:07)
[2023-02-18] MEDS: HYDROmorphone 0.5 MG/0.5 ML SYRINGE IVP PRN ×2 (03:52→08:03)
[2023-02-18] MEDS: LEVOTHYROXINE 25 MCG TAB PO SCH (05:56)
[2023-02-18] MEDS: PIPERACILLIN-TAZOBACTAM 3.375 GM in SODIUM CHLORIDE 0.9% 100 ML IVPB SCH ×2 (08:04→17:08)
[2023-02-18] MEDS: HEPARIN SODIUM,PORCINE/PF 5,000 UNIT/0.5 ML SYRINGE SQ SCH ×2 (08:05→20:25)
[2023-02-18] MEDS: DULoxetine HCL 60 MG CAPSULE.DR PO SCH (08:05)
[2023-02-18] MEDS: FAMOTIDINE 20 MG/2 ML VIAL IV SCH ×2 (08:05→20:07)
[2023-02-18 09:21] LABS: ALT 187 U/L (8-44); AST 99 U/L (13-35); African American GFR (CKD) 94.5 (60.0-200.0); Albumin 3.9 g/dL (3.8-4.9); Albumin/Globulin Ratio 1.97 (1.60-3.17); Alkaline Phosphatase 76 U/L (41-126); BUN/Creat Ratio 14.19 Ratio (12.00-20.00); Basophils # (A) 0.01 X 10*3/uL (0.00-0.10); Basophils % (A) 0.2 %; Bilirubin, Conjugated <0.20 mg/dL (0.20-0.40); Blood Urea Nitrogen 10.5 mg/dL (9.0-27.0); Calcium 8.8 mg/dL (8.7-10.3); Carbon Dioxide 25.4 mmol/L (20.0-27.5); Chloride 106 mmol/L (96-109); Eosinophils # (A) 0.13 X 10*3/uL (0.04-0.35); Glucose 126 mg/dL (70-110); HCT 41.4 % (37.2-46.3); HGB 13.4 g/dL (12.0-15.0); Immature Grans, Automated 0.2 %; Lymphocytes # (A) 0.83 X 10*3/uL (0.90-5.00); Lymphocytes % (A) 19.1 %; MCH 31.3 pg (27.0-32.0); MCHC 32.4 g/dL (32.0-37.0); MCV 96.7 fL (80.0-97.0); Mean Platelet Volume 9.3 fL (9.5-12.2); Monocytes # (A) 0.42 X 10*3/uL (0.20-1.00); Monocytes % (A) 9.7 %; NRBC Per 100 WBC 0 /100 WBCS (0.0-0.0); Neutrophils # (A) 2.94 X 10*3/uL (1.80-7.70); Neutrophils % (A) 67.8 %; Non-African American GFR(CKD) 81.5 (60.0-200.0); Platelet Count 238 X 10*3/uL (140-440); Potassium 4.3 mmol/L (3.5-5.5); RBC 4.28 X 10*6/uL (4.10-5.20); RDW 13.7 % (11.5-14.5); Sodium 141 mmol/L (135-145); Total Protein 5.9 g/dL (6.2-8.2); WBC 4.34 X 10*3/uL (4.50-10.00)
--- NOTE | 2023-02-18 12:48 | P.PN ---
Subjective Progress Note Date: 02/18/23 Principal diagnosis: cholelithiasis, distended gallbladder Developed bloating & upper abdominal aching that woke her from sleep. Had associated nausea. Has had similar symptoms but not as severe, intermittently for the past 2 years. Doesn't notice much of an association with spicy, greasy foods but doesn't eat much of them. No issues with bowel function. US revealed distended GB with 2.6cm mobile stone. Did well yesterday. Today, increased nausea & pain. Inability to tolerate solid foods. Only wanting liquids. AP normal, TB & AST down-trending, ALT up-trending. Objective - Vital Signs Vital signs: Vital Signs Temp 97.4 F L 02/18/23 07:00 Pulse 73 02/18/23 07:00 Resp 16 02/18/23 07:00 BP 130/72 02/18/23 07:00 Pulse Ox 98 02/18/23 07:00 FiO2 Intake & Output 02/17/23 02/18/23 02/18/23 18:59 06:59 18:59 Weight 81.647 kg Other: # Voids 1 1 - Constitutional Constitutional Comment(s): ill appearing, non toxic General appearance: Present: cooperative - EENT Eyes: Present: anicteric sclerae ENT: Present: hearing grossly normal - Neck Details: supple - Respiratory Details: non labored breathing, normal effort & excursion - Cardiovascular Rhythm: regular - Gastrointestinal General gastrointestinal: Present: distended - Integumentary Integumentary Comment(s): dry, no diaphoresis - Neurologic Neurologic Comment(s): no gross deficits - Musculoskeletal Musculoskeletal: Present: gait normal - Psychiatric Psychiatric Comment(s): cooperative, normal affect - Labs CBC & Chem 7: 02/18/23 05:28 02/18/23 05:28 Labs: Abnormal Lab Results - Last 24 Hours (Table) 02/18/23 02/18/23 Range/Units 05:28 05:28 WBC 4.34 L (4.50-10.00) X 10*3/uL MPV 9.3 L (9.5-12.2) fL Lymphocytes # 0.83 L (0.90-5.00) X 10*3/uL Anion Gap 9.60 L (10.00-18.00) mmol/L Glucose 126 H (70-110) mg/dL Conjugated Bilirubin <0.20 L (0.20-0.40) mg/dL AST 99 H (13-35) U/L ALT 187 H (8-44) U/L Total Protein 5.9 L (6.2-8.2) g/dL Assessment and Plan Assessment: abdominal pain & nausea, worse today cholelithiasis with distended gallbladder - no signs of acute cholecystitis on imaging - no leukocytosis Plan: Failed non operative mgmt. Will plan for robotic assisted laparoscopic cholecystectomy with firefly, possible open Tuesday 02/20. Details of surgery had been discussed with patient. Questions answered. Appreciate medical "clearance" prior to OR. Changed diet to fulls, per patient request. NPO after MN on Sunday. Continue IVF. Time with Patient: Less than 30
[2023-02-18] MEDS: SODIUM CHLORIDE 0.9% 1,000 ML IV SCH (13:34)
[2023-02-19] MEDS: SODIUM CHLORIDE 0.9% 1,000 ML IV SCH ×2 (00:13→14:05)
[2023-02-19] MEDS: PIPERACILLIN-TAZOBACTAM 3.375 GM in SODIUM CHLORIDE 0.9% 100 ML IVPB SCH ×4 (00:28→23:23)
[2023-02-19] MEDS: LEVOTHYROXINE 25 MCG TAB PO SCH (06:04)
--- NOTE | 2023-02-19 07:11 | P.PN ---
Subjective This is a pleasant 72 years old female with past medical history of Osteoarthritis (OA), hypothyroidism, cervical cancer in 1983 Patient presents because of right upper quadrant abdominal pain started last night. At 7/10 in severity with rotating slightly to the back, felt like sharp and tightness. She states that she has issues with gallbladder for a while now. She denies vomiting but she has nausea. She had normal bowel movement She denies any change in her urine habits, no chest pain or dyspnea. No headache weakness or numbness. She denies smoking alcohol or illicit drugs Vitas looks stable and afebrile unremarkable cbc, bmp. liver enzymes elevated with ast 159 and alt 90. lipase is normal at 58. rest of bmp and amylase is normal. ekg showing normal sinus rhythm at [address]-t changes Bladder ultrasound: Gallstones without Fulvicin secondary ultrasound evidence for acute cholecystitis. There is mild extrahepatic biliary dilatation and the gallbladder has distended margins in patient with right upper quadrant abdominal pain it is not entirely exclude it 02/18/2023 Patient still feels sick, she still complaining from nausea although no vomiting, she could not tolerate diet and she could not eat Although her right upper quadrant abdominal pain and tenderness is improving and she has good bowel movement today but she still complaining from symptoms from her acute cholecystitis. Therefore we'll continue with bowel rest, IV antibiotics with fluid and surgery team following her closely with possible need for surgical intervention. Liver enzymes are showing mild improvement Objective - Vital Signs Vital signs: Vital Signs Temp 97.4 F L 02/18/23 07:00 Pulse 73 02/18/23 07:00 Resp 16 02/18/23 07:00 BP 130/72 02/18/23 07:00 Pulse Ox 98 02/18/23 07:00 FiO2 Intake & Output 02/17/23 02/18/23 02/18/23 18:59 06:59 18:59 Weight 81.647 kg Other: # Voids 1 1 - Exam GENERAL: The patient is alert and oriented x3, not in any acute distress. Well developed, well nourished. HEENT: Pupils are round and equally reacting to light. EOMI. No scleral icterus. No conjunctival pallor. Normocephalic, atraumatic. No pharyngeal erythema. No thyromegaly. CARDIOVASCULAR: S1 and S2 present. No murmurs, rubs, or gallops. PULMONARY: Chest is clear to auscultation, no wheezing or crackles. ABDOMEN: Soft, nontender, nondistended, normoactive bowel sounds. No palpable organomegaly. MUSCULOSKELETAL: No joint swelling or deformity. EXTREMITIES: No cyanosis, clubbing, or pedal edema. NEUROLOGICAL: Gross neurological examination did not reveal any focal deficits. SKIN: No rashes. no petechiae. - Labs CBC & Chem 7: 02/18/23 05:28 02/18/23 05:28 Labs: Abnormal Lab Results - Last 24 Hours (Table) 02/18/23 02/18/23 Range/Units 05:28 05:28 WBC 4.34 L (4.50-10.00) X 10*3/uL MPV 9.3 L (9.5-12.2) fL Lymphocytes # 0.83 L (0.90-5.00) X 10*3/uL Anion Gap 9.60 L (10.00-18.00) mmol/L Glucose 126 H (70-110) mg/dL Conjugated Bilirubin <0.20 L (0.20-0.40) mg/dL AST 99 H (13-35) U/L ALT 187 H (8-44) U/L Total Protein 5.9 L (6.2-8.2) g/dL Assessment and Plan Assessment: Acute cholecystitis is highly suspected Mild transaminitis secondary to above Hypothyroidism History of osteoarthritis Plan: bowel rest Pain medication IV fluids Antibiotic Surgery to consult Labs and medication were reviewed.. Continue same treatment. Continue with symptomatic treatment. Resume home medication. Monitor labs and vitals. DVT and GI prophylaxis. Further recommendations as per clinical course of the patient DVT prophylaxis: Subcutaneous heparin GI Prophylaxis: Pepcid Prognosis is guarded
[2023-02-19] MEDS: DULoxetine HCL 60 MG CAPSULE.DR PO SCH (07:45)
[2023-02-19] MEDS: FAMOTIDINE 20 MG/2 ML VIAL IV SCH ×2 (07:45→21:25)
[2023-02-19] MEDS: HEPARIN SODIUM,PORCINE/PF 5,000 UNIT/0.5 ML SYRINGE SQ SCH ×2 (07:46→20:58)
[2023-02-19] MEDS: ONDANSETRON 4 MG/2 ML VIAL IVP PRN (07:46)
[2023-02-19 11:33] LABS: Basophils % (A) 1 %; Eosinophils # (A) 0.1 k/uL (0-0.7); Eosinophils % (A) 2 %; HGB 14.4 gm/dL (11.4-16.0); Lymphocytes # (A) 1.1 k/uL (1.0-4.8); Lymphocytes % (A) 21 %; MCH 32.1 pg (25.0-35.0); MCHC 33.5 g/dL (31.0-37.0); MCV 95.8 fL (80.0-100.0); Mean Platelet Volume 7.1; Monocytes # (A) 0.4 k/uL (0-1.0); Monocytes % (A) 7 %; Neutrophils # (A) 3.3 k/uL (1.3-7.7); Neutrophils % (A) 65 %; Platelet Count 222 k/uL (150-450); RBC 4.48 m/uL (3.80-5.40); RDW 13.6 % (11.5-15.5); WBC 5.1 k/uL (3.8-10.6)
[2023-02-19 11:54] LABS: ALT 160 U/L (4-34); AST 93 U/L (14-36); African American GFR (CKD) >90 (>60 ml/min/1.73 sqM); Albumin 4.1 g/dL (3.5-5.0); Albumin/Globulin Ratio 1.5; Alkaline Phosphatase 78 U/L (38-126); Anion Gap 10 mmol/L; Bilirubin,Unconjugated 0.4 mg/dL (0.0-1.1); Blood Urea Nitrogen 7 mg/dL (7-17); Calcium 9.2 mg/dL (8.4-10.2); Carbon Dioxide 26 mmol/L (22-30); Chloride 103 mmol/L (98-107); Globulin 2.8 g/dL; Glucose 87 mg/dL (74-99); Non-African American GFR(CKD) 83 (>60 ml/min/1.73 sqM); Potassium 3.7 mmol/L (3.5-5.1); Sodium 139 mmol/L (137-145); Total Bilirubin 0.8 mg/dL (0.2-1.3); Total Protein 6.9 g/dL (6.3-8.2)
--- NOTE | 2023-02-19 13:34 | XR ---
EXAMINATION TYPE: XR chest 2V DATE OF EXAM: 02/19/2023 COMPARISON: NONE TECHNIQUE: PA and lateral views submitted. HISTORY: Preop FINDINGS: The lungs are clear and there is no pneumothorax, pleural effusion, or focal pneumonia. Heart size normal and no overt failure. Osseous structures demonstrate hypertrophic and degenerative changes of the spine. Postsurgical changes involving the vertebral column. IMPRESSION: 1. No acute process.
[2023-02-19 17:29] LABS: Appearance,Urine Clear (Clear); Bilirubin,Urine Negative (Negative); Blood,Urine Negative (Negative); Color,Urine Yellow; Glucose,Urine (UA) Negative (Negative); Ketones,Urine Negative (Negative); Leukocyte Esterase,Urine Negative (Negative); Nitrite,Urine Negative (Negative); PH, Urine 5.5 (5.0-8.0); Protein,Urine Negative (Negative); Specific Gravity,Urine 1.014 (1.001-1.035); Urobilinogen,Urine <2.0 mg/dL (<2.0)
--- NOTE | 2023-02-19 20:33 | P.PN ---
Subjective Progress Note Date: 02/19/23 Principal diagnosis: cholelithiasis, distended gallbladder Developed bloating & upper abdominal aching that woke her from sleep. Had associated nausea. Has had similar symptoms but not as severe, intermittently for the past 2 years. Doesn't notice much of an association with spicy, greasy foods but doesn't eat much of them. No issues with bowel function. US revealed distended GB with 2.6cm mobile stone. Still with nausea & abdominal pain with eating. Still unable to tolerate full PO intake. Objective - Vital Signs Vital signs: Vital Signs Temp 97.6 F 02/19/23 16:22 Pulse 73 02/19/23 16:22 Resp 16 02/19/23 16:22 BP 112/72 02/19/23 16:22 Pulse Ox 98 02/19/23 16:22 FiO2 Intake & Output 02/19/23 02/19/23 02/20/23 06:59 18:59 06:59 Intake Total 526 180 Balance 526 180 Intake: Oral 526 180 Other: # Voids 1 5 - Constitutional General appearance: Present: cooperative, no acute distress - EENT ENT: Present: hearing grossly normal - Respiratory Details: non labored breathing, normal effort & excursion - Cardiovascular Rhythm: regular - Gastrointestinal General gastrointestinal: Present: soft, tenderness. Absent: distended, rigid - Integumentary Integumentary Comment(s): dry, no diaphoresis - Neurologic Neurologic Comment(s): no gross deficits - Psychiatric Psychiatric Comment(s): cooperative, normal affect - Labs CBC & Chem 7: 02/19/23 10:56 02/19/23 10:56 Labs: Abnormal Lab Results - Last 24 Hours (Table) 02/19/23 Range/Units 10:56 AST 93 H (14-36) U/L ALT 160 H (4-34) U/L Assessment and Plan Assessment: abdominal pain & nausea, not improving cholelithiasis with distended gallbladder - no signs of acute cholecystitis on imaging - no leukocytosis Plan: Plan for robotic assisted laparoscopic cholecystectomy with firefly Sunday. Details of surgery discussed, questions answered. Continue with clears as tolerates. IVF. Time with Patient: Less than 30
--- NOTE | 2023-02-19 20:46 | P.PN ---
Progress Note - Text Progress Note Date: 02/19/23 This is a very pleasant 72-year-old patient who follows with Dr. Wero Ashton. This is a pleasant 72 years old female with past medical history of Osteoarthritis (OA), hypothyroidism, cervical cancer in 1983 Patient presents because of right upper quadrant abdominal pain started last night. At 7/10 in severity with rotating slightly to the back, felt like sharp and tightness. She states that she has issues with gallbladder for a while now. She denies vomiting but she has nausea. She had normal bowel movement She denies any change in her urine habits, no chest pain or dyspnea. No headache weakness or numbness. She denies smoking alcohol or illicit drugs Vitas looks stable and afebrile unremarkable cbc, bmp. liver enzymes elevated with ast 159 and alt 90. lipase is normal at 58. rest of bmp and amylase is normal. ekg showing normal sinus rhythm at [address]-t changes Bladder ultrasound: Gallstones without Fulvicin secondary ultrasound evidence for acute cholecystitis. There is mild extrahepatic biliary dilatation and the gallbladder has distended margins in patient with right upper quadrant abdominal pain it is not entirely exclude it 02/18/2023 Patient still feels sick, she still complaining from nausea although no vomiting, she could not tolerate diet and she could not eat Although her right upper quadrant abdominal pain and tenderness is improving and she has good bowel movement today but she still complaining from symptoms from her acute cholecystitis. Therefore we'll continue with bowel rest, IV antibiotics with fluid and surgery team following her closely with possible need for surgical intervention. Liver enzymes are showing mild improvement 02/19/2023: I assumed care of the patient today. Sitting up in a chair. Upper abdominal bloating. Some nausea. No fever no chills. Had a BM. Patient is being scheduled for surgery tomorrow. As patient has failed conservative management. Past medical history to include: Osteoarthritis, hypothyroid, peripheral neuropathy, Tasneem's, cervical cancer 9083, Social history: Does not smoke. Alcohol occasionally. Family history: Lung cancer Physical examination: VITAL SIGNS: 97.6, 73, 16, 112/72, 98% room air GENERAL: BMI 30.0, up in a chair. Per distress EYES: Pupils equal. Conjunctiva normal. HEENT: External appearance of nose and ears normal, oral cavity grossly normal. NECK: JVD not raised; masses not palpable. HEART: First and second heart sounds are normal; no edema. LUNGS: Respiratory rate normal; clear to auscultation MUSCULOSKELETAL Evidence of OA. ABDOMEN: Soft, mild upper quadrant tenderness, liver spleen not palpable, no masses palpable. PSYCH: Alert and oriented x3; mood and affect normal. INVESTIGATIONS, reviewed in the clinical context: February 19: White count 5.1 hemoglobin 14.4 platelets 222 potassium 3.7 creatinine 0.73 sodium 139 UA: Negative Amylase 41 lipase 58 EKG: Normal sinus rhythm Ultrasound gallbladder: Gallstones. Mild extremity biliary dilatation. Assessment and plan: -Acute cholecystitis. With choledocholithiasis.: Not improving Failed conservative management. IV Zosyn. Scheduled for surgery tomorrow. -Primary osteoarthritis multiple joints bilaterally Use pain medications as needed -Hypothyroid Synthroid, if 2 g -Peripheral neuropathy, idiopathic Cymbalta 60 mg daily -Urinary stress incontinence -Full code Medically stable to proceed with surgery. Discussed with patient. Thank you
[2023-02-20] MEDS: SODIUM CHLORIDE 0.9% 1,000 ML IV SCH ×2 (04:01→17:10)
[2023-02-20] MEDS: LEVOTHYROXINE 25 MCG TAB PO SCH (06:06)
[2023-02-20] MEDS: PIPERACILLIN-TAZOBACTAM 3.375 GM in SODIUM CHLORIDE 0.9% 100 ML IVPB SCH ×2 (08:13→17:10)
[2023-02-20] MEDS: DULoxetine HCL 60 MG CAPSULE.DR PO SCH (09:29)
[2023-02-20] MEDS: HEPARIN SODIUM,PORCINE/PF 5,000 UNIT/0.5 ML SYRINGE SQ SCH ×2 (09:30→21:16)
[2023-02-20] MEDS: FAMOTIDINE 20 MG/2 ML VIAL IV SCH ×2 (10:51→21:18)
[2023-02-20] MEDS: ONDANSETRON 4 MG/2 ML VIAL IVP PRN (12:41)
--- NOTE | 2023-02-20 14:44 | P.PN ---
Progress Note - Text Progress Note Date: 02/20/23 This is a very pleasant 72-year-old patient who follows with Dr. Wero Ashton. This is a pleasant 72 years old female with past medical history of Osteoarthritis (OA), hypothyroidism, cervical cancer in 1983 Patient presents because of right upper quadrant abdominal pain started last night. At 7/10 in severity with rotating slightly to the back, felt like sharp and tightness. She states that she has issues with gallbladder for a while now. She denies vomiting but she has nausea. She had normal bowel movement She denies any change in her urine habits, no chest pain or dyspnea. No headache weakness or numbness. She denies smoking alcohol or illicit drugs Vitas looks stable and afebrile unremarkable cbc, bmp. liver enzymes elevated with ast 159 and alt 90. lipase is normal at 58. rest of bmp and amylase is normal. ekg showing normal sinus rhythm at [address]-t changes Bladder ultrasound: Gallstones without Fulvicin secondary ultrasound evidence for acute cholecystitis. There is mild extrahepatic biliary dilatation and the gallbladder has distended margins in patient with right upper quadrant abdominal pain it is not entirely exclude it 02/18/2023 Patient still feels sick, she still complaining from nausea although no vomiting, she could not tolerate diet and she could not eat Although her right upper quadrant abdominal pain and tenderness is improving and she has good bowel movement today but she still complaining from symptoms from her acute cholecystitis. Therefore we'll continue with bowel rest, IV antibiotics with fluid and surgery team following her closely with possible need for surgical intervention. Liver enzymes are showing mild improvement 02/19/2023: I assumed care of the patient today. Sitting up in a chair. Upper abdominal bloating. Some nausea. No fever no chills. Had a BM. Patient is being scheduled for surgery tomorrow. As patient has failed conservative management. 02/20/2023: Patient is ambulating in the hallway. Slight abdominal discomfort. Surgery is scheduled for tomorrow mouth because of scheduling issues. IV Zosyn. Minimal nausea. IV fluids Past medical history to include: Osteoarthritis, hypothyroid, peripheral neuropathy, Tasneem's, cervical cancer 9084, Social history: Does not smoke. Alcohol occasionally. Family history: Lung cancer Physical examination: VITAL SIGNS: 98, 77, 18, 1:30/85, 97% room air GENERAL: BMI 30.0, up in a chair. Not in distress EYES: Pupils equal. Conjunctiva normal. HEENT: External appearance of nose and ears normal, oral cavity grossly normal. NECK: JVD not raised; masses not palpable. HEART: First and second heart sounds are normal; no edema. LUNGS: Respiratory rate normal; clear to auscultation MUSCULOSKELETAL Evidence of OA. ABDOMEN: Soft, mild upper quadrant tenderness, liver spleen not palpable, no masses palpable. PSYCH: Alert and oriented x3; mood and affect normal. INVESTIGATIONS, reviewed in the clinical context: February 19: White count 5.1 hemoglobin 14.4 platelets 222 potassium 3.7 creatinine 0.73 sodium 139 UA: Negative Amylase 41 lipase 58 EKG: Normal sinus rhythm Ultrasound gallbladder: Gallstones. Mild extremity biliary dilatation. Assessment and plan: -Acute cholecystitis. With choledocholithiasis.: Not improving Failed conservative management. IV Zosyn. Rescheduled for surgery tomorrow. -Primary osteoarthritis multiple joints bilaterally Use pain medications as needed -Hypothyroid Synthroid, if 2 g -Peripheral neuropathy, idiopathic Cymbalta 60 mg daily -Urinary stress incontinence -Full code Medically stable to proceed with surgery. Discussed with patient. Activity as tolerated. Thank you
[2023-02-21] MEDS: PIPERACILLIN-TAZOBACTAM 3.375 GM in SODIUM CHLORIDE 0.9% 100 ML IVPB SCH ×3 (00:29→19:54)
[2023-02-21] MEDS: LEVOTHYROXINE 25 MCG TAB PO SCH (06:49)
[2023-02-21] MEDS: SODIUM CHLORIDE 0.9% 1,000 ML IV SCH ×2 (06:50→19:56)
[2023-02-21] MEDS: DULoxetine HCL 60 MG CAPSULE.DR PO SCH (08:25)
[2023-02-21] MEDS: HEPARIN SODIUM,PORCINE/PF 5,000 UNIT/0.5 ML SYRINGE SQ SCH ×2 (10:00→22:48)
[2023-02-21] MEDS: FAMOTIDINE 20 MG/2 ML VIAL IV SCH ×2 (10:25→22:48)
[2023-02-21] MEDS ORDERED: LACTATED RINGERS 1,000 ML IV ONE ×2 (15:18→17:54)
[2023-02-21] MEDS ORDERED: ONDANSETRON 4 MG/2 ML VIAL IVP ONE (15:38)
[2023-02-21] MEDS ORDERED: DEXAMETHASONE SOD PHOSPHATE 4 MG/ML 1 ML VIAL IVP ONE (15:39)
[2023-02-21] MEDS ORDERED: GLYCOPYRROLATE 0.2 MG/ML 2 ML VIAL ONE (16:17)
[2023-02-21] MEDS ORDERED: HYDROmorphone (PF) 1 MG/ML ONE (16:17)
[2023-02-21] MEDS ORDERED: LIDOCAINE 2% INJ 20 MG/ML (2 ML VIAL) ONE (16:17)
[2023-02-21] MEDS ORDERED: SODIUM CHLORIDE 0.9% 100 ML BAG ONE (16:17)
[2023-02-21] MEDS ORDERED: PROPOFOL 10 MG/ML 20 ML VIAL IV ONE (16:17)
[2023-02-21] MEDS ORDERED: ROCURONIUM 10 MG/ML (5 ML VIAL) IV ONE (16:17)
[2023-02-21] MEDS ORDERED: SUCCINYLCHOLINE CHLORIDE 200 MG/10 ML VIAL IV ONE (16:17)
[2023-02-21] MEDS ORDERED: fentaNYL (PF) 50 MCG/ML 2 ML AMP ONE (16:17)
[2023-02-21] MEDS ORDERED: ceFAZolin 1,000 MG VIAL ONE (16:17)
[2023-02-21] MEDS ORDERED: NEOSTIGMINE 1 MG/ML 10 ML VIAL ONE (16:17)
[2023-02-21] MEDS ORDERED: SODIUM CHLORIDE 0.9% 50 ML with ceFAZolin 2,000 MG IV ONE ×2 (16:21)
[2023-02-21] MEDS ORDERED: INDOCYANINE GREEN 25 MG VIAL IV ONE (16:30)
[2023-02-21] MEDS ORDERED: BUPIVACAIN-EPI 0.25%-1:200,000 30 ML VIAL SQ ONE ×2 (16:48)
--- NOTE | 2023-02-21 16:58 | P.PN ---
Progress Note - Text Progress Note Date: 02/21/23 This is a very pleasant 72-year-old patient who follows with Dr. Wero Ashton. This is a pleasant 72 years old female with past medical history of Osteoarthritis (OA), hypothyroidism, cervical cancer in 1983 Patient presents because of right upper quadrant abdominal pain started last night. At 7/10 in severity with rotating slightly to the back, felt like sharp and tightness. She states that she has issues with gallbladder for a while now. She denies vomiting but she has nausea. She had normal bowel movement She denies any change in her urine habits, no chest pain or dyspnea. No headache weakness or numbness. She denies smoking alcohol or illicit drugs Vitas looks stable and afebrile unremarkable cbc, bmp. liver enzymes elevated with ast 159 and alt 90. lipase is normal at 58. rest of bmp and amylase is normal. ekg showing normal sinus rhythm at [address]-t changes Bladder ultrasound: Gallstones without Fulvicin secondary ultrasound evidence for acute cholecystitis. There is mild extrahepatic biliary dilatation and the gallbladder has distended margins in patient with right upper quadrant abdominal pain it is not entirely exclude it 02/18/2023 Patient still feels sick, she still complaining from nausea although no vomiting, she could not tolerate diet and she could not eat Although her right upper quadrant abdominal pain and tenderness is improving and she has good bowel movement today but she still complaining from symptoms from her acute cholecystitis. Therefore we'll continue with bowel rest, IV antibiotics with fluid and surgery team following her closely with possible need for surgical intervention. Liver enzymes are showing mild improvement 02/19/2023: I assumed care of the patient today. Sitting up in a chair. Upper abdominal bloating. Some nausea. No fever no chills. Had a BM. Patient is being scheduled for surgery tomorrow. As patient has failed conservative management. 02/20/2023: Patient is ambulating in the hallway. Slight abdominal discomfort. Surgery is scheduled for tomorrow mouth because of scheduling issues. IV Zosyn. Minimal nausea. IV fluids 02/21/2023: Patient has been out of bed. Pending surgery later this evening as an add-on. Abdominal discomfort. Continue IV Zosyn. Discussed. Past medical history to include: Osteoarthritis, hypothyroid, peripheral neuropathy, Tasneem's, cervical cancer 9084, Social history: Does not smoke. Alcohol occasionally. Family history: Lung cancer Physical examination: VITAL SIGNS: 97.5, 76, 18, 1:30/67, 95% room air GENERAL: BMI 30.0, Not in distress EYES: Pupils equal. Conjunctiva normal. HEENT: External appearance of nose and ears normal, oral cavity grossly normal. NECK: JVD not raised; masses not palpable. HEART: First and second heart sounds are normal; no edema. LUNGS: Respiratory rate normal; clear to auscultation MUSCULOSKELETAL Evidence of OA. ABDOMEN: Soft, mild upper quadrant tenderness, liver spleen not palpable, no masses palpable. PSYCH: Alert and oriented x3; mood and affect normal. INVESTIGATIONS, reviewed in the clinical context: February 19: White count 5.1 hemoglobin 14.4 platelets 222 potassium 3.7 creatinine 0.73 sodium 139 UA: Negative Amylase 41 lipase 58 EKG: Normal sinus rhythm Ultrasound gallbladder: Gallstones. Mild extremity biliary dilatation. Assessment and plan: -Acute cholecystitis. With choledocholithiasis.: Not improving Failed conservative management. IV Zosyn. Rescheduled for surgery tomorrow. -Primary osteoarthritis multiple joints bilaterally Use pain medications as needed -Hypothyroid Synthroid, if 2 g -Peripheral neuropathy, idiopathic Cymbalta 60 mg daily -Urinary stress incontinence -Full code Pending surgery later today as an add-on. Discussed with patient. Thank you
[2023-02-21] MEDS ORDERED: HYDROcodone/APAP 5-325MG 1 EACH TAB PO PRN (20:13)
--- NOTE | 2023-02-21 20:23 | P.OP ---
Date of Procedure: 02/21/23 Preoperative Diagnosis: symptomatic cholelithiasis Postoperative Diagnosis: symptomatic cholelithiasis, chronic cholecystitis Procedure(s) Performed: attempted robotic assisted laparoscopic cholecystectomy, converted to open subtotal cholecystectomy, lysis of adhesions, COLLEEN drain placement Anesthesia: PEPEA Surgeon: Cathy Chino Estimated Blood Loss (ml): 200 Pathology: other (gallbladder & gallstone) Condition: stable Disposition: PACU Operative Findings: Large distended GB with significant adhesions to liver & anterior abdominal wall. Adhesions from liver to anterior abdominal wall. Omental adhesions to gallbladder & abdominal wall. Taking down with sharp & blunt dissection. Using firefly, able to identify generalized location of duct but due to chronic inflammatory changes, unable to safely dissect out the duct. Artery able to be identified at clipped. Under open visualization, gallbladder able to be mostly dissected off liver bed but again, do to the chronic inflammatory changes surrounding the duct, unable to safely isolate the cystic duct. Gallbladder was entered & stone removed. Most of the gallbladder wall removed. Cystic duct opening identified but still unable to safely dissect out the duct. Small gallbladder remnant was sutured closed. Surgicell placed within gallbladder fossa. COLLEEN drain placed in gallbladder fossa. Description of Procedure: See complete dictation for full details.
[2023-02-21] MEDS ORDERED: SODIUM CHLORIDE 0.9% 1,000 ML IV ONE (21:04)
[2023-02-21] MEDS: methocarbamoL 500 MG TAB PO SCH (22:49)
[2023-02-22] MEDS: PIPERACILLIN-TAZOBACTAM 3.375 GM in SODIUM CHLORIDE 0.9% 100 ML IVPB SCH ×4 (01:00→23:59)
[2023-02-22] MEDS: KETOROLAC 15 MG/ML 1 ML VIAL IVP PRN ×3 (01:35→15:32)
[2023-02-22] MEDS: ONDANSETRON 4 MG/2 ML VIAL IVP PRN (01:35)
[2023-02-22] MEDS: LEVOTHYROXINE 25 MCG TAB PO SCH (05:54)
[2023-02-22 06:37] LABS: Basophils % (A) 0 %; Eosinophils # (A) 0.1 k/uL (0-0.7); Eosinophils % (A) 1 %; HCT 43.5 % (34.0-46.0); HGB 13.9 gm/dL (11.4-16.0); Lymphocytes # (A) 0.6 k/uL (1.0-4.8); Lymphocytes % (A) 5 %; MCV 96.9 fL (80.0-100.0); Mean Platelet Volume 6.9; Monocytes # (A) 0.7 k/uL (0-1.0); Monocytes % (A) 7 %; Neutrophils # (A) 8.8 k/uL (1.3-7.7); Neutrophils % (A) 86 %; Platelet Count 236 k/uL (150-450); RBC 4.49 m/uL (3.80-5.40); RDW 13.2 % (11.5-15.5); WBC 10.3 k/uL (3.8-10.6)
[2023-02-22 06:51] LABS: Partial Thromboplastin Time 22.9 sec (22.0-30.0); Prothrombin Time 10.9 sec (9.0-12.0)
[2023-02-22 08:12] LABS: ALT 180 U/L (4-34); AST 86 U/L (14-36); African American GFR (CKD) >90 (>60 ml/min/1.73 sqM); Albumin/Globulin Ratio 1.5; Alkaline Phosphatase 80 U/L (38-126); Anion Gap 10 mmol/L; Blood Urea Nitrogen 7 mg/dL (7-17); Calcium 8.7 mg/dL (8.4-10.2); Carbon Dioxide 27 mmol/L (22-30); Chloride 101 mmol/L (98-107); Globulin 2.6 g/dL; Glucose 131 mg/dL (74-99); Non-African American GFR(CKD) >90 (>60 ml/min/1.73 sqM); Potassium 4.2 mmol/L (3.5-5.1); Sodium 138 mmol/L (137-145); Total Bilirubin 1.3 mg/dL (0.2-1.3); Total Protein 6.6 g/dL (6.3-8.2)
[2023-02-22] MEDS: DULoxetine HCL 60 MG CAPSULE.DR PO SCH (08:26)
[2023-02-22] MEDS: methocarbamoL 500 MG TAB PO SCH ×4 (08:26→23:59)
[2023-02-22] MEDS: SENNOSIDES 8.6 MG TAB PO SCH ×2 (08:26→21:24)
[2023-02-22] MEDS: DOCUSATE 100 MG CAP PO SCH ×2 (08:26→21:24)
[2023-02-22] MEDS: HEPARIN SODIUM,PORCINE/PF 5,000 UNIT/0.5 ML SYRINGE SQ SCH ×2 (08:26→21:25)
[2023-02-22] MEDS: SODIUM CHLORIDE 0.9% 1,000 ML IV SCH ×2 (09:06→22:32)
[2023-02-22] MEDS: FAMOTIDINE 20 MG/2 ML VIAL IV SCH ×2 (09:07→23:59)
[2023-02-22] MEDS: ACETAMINOPHEN TAB 325 MG TAB PO PRN (10:39)
--- NOTE | 2023-02-22 12:32 | P.PN ---
Subjective Progress Note Date: 02/22/23 Principal diagnosis: cholelithiasis, distended gallbladder Developed bloating & upper abdominal aching that woke her from sleep. Had associated nausea. Has had similar symptoms but not as severe, intermittently for the past 2 years. Doesn't notice much of an association with spicy, greasy foods but doesn't eat much of them. No issues with bowel function. US revealed distended GB with 2.6cm mobile stone. Taken to OR on 02/21 for robotic assisted laparoscopic cholecystectomy but due to chronic inflammatory changes, was converted to open & a subtotal cholecystectomy was performed, with COLLEEN drain placement. Doing OK this morning. In pain, as expected. Clears at bedside but hadn't had any yet. Eager to improve. AST/ALT elevated this morning. Not surprising due to the manipulation of the liver, as well as the extensive adhesions that were taken down intra- operatively. Objective - Vital Signs Vital signs: Vital Signs Temp 98.1 F 02/22/23 06:55 Pulse 81 02/22/23 06:55 Resp 15 02/22/23 10:57 BP 119/72 02/22/23 06:55 Pulse Ox 98 02/22/23 09:52 FiO2 Intake & Output 02/21/23 02/22/23 02/22/23 18:59 06:59 18:59 Intake Total 1970 25 180 Output Total 200 100 Balance 1970 -175 80 Weight 81.647 kg Intake: IV 1850 25 Oral 120 180 Output: Drainage 100 Abdomen 100 Estimated Blood Loss 200 Other: Voiding Method Toilet # Voids 2 1 - Constitutional General appearance: Present: cooperative, no acute distress - EENT Eyes: Present: anicteric sclerae ENT: Present: hearing grossly normal - Respiratory Details: non labored breathing, normal effort & excursion - Cardiovascular Rhythm: regular - Gastrointestinal Gastrointestinal Comment(s): incisions with esperanza & intact sterile dressings, COLLEEN in place - Integumentary Integumentary: Present: normal - Neurologic Neurologic Comment(s): no gross deficits - Psychiatric Psychiatric Comment(s): cooperative, normal affect - Labs CBC & Chem 7: 02/22/23 06:07 02/22/23 06:07 Labs: Abnormal Lab Results - Last 24 Hours (Table) 02/22/23 02/22/23 Range/Units 06:07 06:07 Neutrophils # 8.8 H (1.3-7.7) k/uL Lymphocytes # 0.6 L (1.0-4.8) k/uL Glucose 131 H (74-99) mg/dL AST 86 H (14-36) U/L ALT 180 H (4-34) U/L Assessment and Plan Assessment: abdominal pain & nausea, not improving cholelithiasis with distended gallbladder - no signs of acute cholecystitis on imaging - no leukocytosis s/p attempted robotic assisted laparoscopic cholecystectomy converted to open subtotal cholecystectomy with COLLEEN drain placement 02/21 - chronic cholecystitis noted with extensive adhesions to liver from abdominal wall, GB & omentum Plan: OK for clears; if tolerates, OK to advance to fulls only tonight. Stool softeners, for known post-operative constipation. Encourage IS, activity. At least to chair today, maybe ambulation this evening. Will trend LFTs; repeat in 2 days. Dressing to be removed in 48 hours. Strip COLLEEN & record output at minimum QShift. Anticipate hospitalization through weekend, due to need for open surgery. OK for heparin SQ prophylaxis. Time with Patient: Less than 30
--- NOTE | 2023-02-22 19:27 | P.PN ---
Progress Note - Text Progress Note Date: 02/22/23 This is a very pleasant 72-year-old patient who follows with Dr. Wero Ashton. This is a pleasant 72 years old female with past medical history of Osteoarthritis (OA), hypothyroidism, cervical cancer in 1983 Patient presents because of right upper quadrant abdominal pain started last night. At 7/10 in severity with rotating slightly to the back, felt like sharp and tightness. She states that she has issues with gallbladder for a while now. She denies vomiting but she has nausea. She had normal bowel movement She denies any change in her urine habits, no chest pain or dyspnea. No headache weakness or numbness. She denies smoking alcohol or illicit drugs Vitas looks stable and afebrile unremarkable cbc, bmp. liver enzymes elevated with ast 159 and alt 90. lipase is normal at 58. rest of bmp and amylase is normal. ekg showing normal sinus rhythm at [address]-t changes Bladder ultrasound: Gallstones without Fulvicin secondary ultrasound evidence for acute cholecystitis. There is mild extrahepatic biliary dilatation and the gallbladder has distended margins in patient with right upper quadrant abdominal pain it is not entirely exclude it 02/18/2023 Patient still feels sick, she still complaining from nausea although no vomiting, she could not tolerate diet and she could not eat Although her right upper quadrant abdominal pain and tenderness is improving and she has good bowel movement today but she still complaining from symptoms from her acute cholecystitis. Therefore we'll continue with bowel rest, IV antibiotics with fluid and surgery team following her closely with possible need for surgical intervention. Liver enzymes are showing mild improvement 02/19/2023: I assumed care of the patient today. Sitting up in a chair. Upper abdominal bloating. Some nausea. No fever no chills. Had a BM. Patient is being scheduled for surgery tomorrow. As patient has failed conservative management. 02/20/2023: Patient is ambulating in the hallway. Slight abdominal discomfort. Surgery is scheduled for tomorrow mouth because of scheduling issues. IV Zosyn. Minimal nausea. IV fluids 02/21/2023: Patient has been out of bed. Pending surgery later this evening as an add-on. Abdominal discomfort. Continue IV Zosyn. Discussed. 02/22/2023: Patient underwent cholecystectomy that was changed to open yesterday. Patient on full liquids. No nausea vomiting. Did ambulate. No fremitus. No BM. Past medical history to include: Osteoarthritis, hypothyroid, peripheral neuropathy, Tasneem's, cervical cancer 9084, Social history: Does not smoke. Alcohol occasionally. Family history: Lung cancer Physical examination: VITAL SIGNS: 97.9, 99, 16, 11 3 x 65, 98% room air GENERAL: Up in chair, not in distress EYES: Pupils equal. Conjunctiva normal. HEENT: External appearance of nose and ears normal, oral cavity grossly normal. NECK: JVD not raised; masses not palpable. HEART: First and second heart sounds are normal; no edema. LUNGS: Respiratory rate normal; clear to auscultation MUSCULOSKELETAL Evidence of OA. ABDOMEN: Soft, mild tenderness, liver spleen not palpable, no masses palpable. PSYCH: Alert and oriented x3; mood and affect normal. INVESTIGATIONS, reviewed in the clinical context: February 22: White count 10.3 hemoglobin 13.9 platelets 236 potassium 4.2 creatinine 0.63 February 19: White count 5.1 hemoglobin 14.4 platelets 222 potassium 3.7 creatinine 0.73 sodium 139 UA: Negative Amylase 41 lipase 58 EKG: Normal sinus rhythm Ultrasound gallbladder: Gallstones. Mild extremity biliary dilatation. Assessment and plan: -Acute on cholecystitis.- choledocholithiasis.: Failed outpatient conservative management. IV Zosyn. Underwent open subtotal cholecystectomy lysis of adhesions. COLLEEN drain. On full liquid diet -Primary osteoarthritis multiple joints bilaterally Use pain medications as needed -Hypothyroid Synthroid, if 2 g -Peripheral neuropathy, idiopathic Cymbalta 60 mg daily -Urinary stress incontinence -Full code Full liquid diet. Activity as tolerated. Discussed with patient. IV Zosyn. Thank you
[2023-02-23] MEDS: KETOROLAC 15 MG/ML 1 ML VIAL IVP PRN ×2 (00:08→07:44)
[2023-02-23] MEDS: LEVOTHYROXINE 25 MCG TAB PO SCH (05:56)
[2023-02-23] MEDS: DULoxetine HCL 60 MG CAPSULE.DR PO SCH (08:13)
[2023-02-23] MEDS: HEPARIN SODIUM,PORCINE/PF 5,000 UNIT/0.5 ML SYRINGE SQ SCH ×2 (08:13→21:06)
[2023-02-23] MEDS: SENNOSIDES 8.6 MG TAB PO SCH ×2 (08:13→21:06)
[2023-02-23] MEDS: methocarbamoL 500 MG TAB PO SCH ×4 (08:13→21:06)
[2023-02-23] MEDS: DOCUSATE 100 MG CAP PO SCH ×2 (08:13→21:06)
[2023-02-23] MEDS: PIPERACILLIN-TAZOBACTAM 3.375 GM in SODIUM CHLORIDE 0.9% 100 ML IVPB SCH ×3 (08:40→23:32)
[2023-02-23] MEDS: FAMOTIDINE 20 MG/2 ML VIAL IV SCH ×2 (08:44→21:06)
[2023-02-23] MEDS ORDERED: polyethylene glycoL 3350 17 GM POWD.PACK PO STA (08:49)
--- NOTE | 2023-02-23 08:53 | P.PN ---
Subjective Progress Note Date: 02/23/23 Principal diagnosis: cholelithiasis, distended gallbladder Developed bloating & upper abdominal aching that woke her from sleep. Had associated nausea. Has had similar symptoms but not as severe, intermittently for the past 2 years. Doesn't notice much of an association with spicy, greasy foods but doesn't eat much of them. No issues with bowel function. US revealed distended GB with 2.6cm mobile stone. Taken to OR on 02/21 for robotic assisted laparoscopic cholecystectomy but due to chronic inflammatory changes, was converted to open & a subtotal cholecystectomy was performed, with COLLEEN drain placement. Doing better this morning. No abdominal pain or nausea with eating. No flatus, BM yes. COLLEEN with slightly bilious/serosanguinous output; could be due to surgicell placed within GB fossa. LFTs OK yesterday. Objective - Vital Signs Vital signs: Vital Signs Temp 98.4 F 02/23/23 06:33 Pulse 77 02/23/23 06:33 Resp 15 02/23/23 06:33 BP 113/68 02/23/23 06:33 Pulse Ox 95 02/23/23 06:33 FiO2 Intake & Output 02/22/23 02/23/23 02/23/23 18:59 06:59 18:59 Intake Total 1350 Output Total 100 65 Balance 1250 -65 Intake: Oral 1350 Output: Drainage 100 65 Abdomen 100 65 Other: Voiding Method Toilet Toilet # Voids 1 1 - Constitutional General appearance: Present: cooperative, no acute distress - EENT Eyes: Present: anicteric sclerae ENT: Present: hearing grossly normal - Respiratory Details: non labored breathing, normal effort & excursion - Cardiovascular Rhythm: regular - Gastrointestinal Gastrointestinal Comment(s): mild iliana-incisional TTP as expected, incisions healing well, esperanza in place; COLLEEN with serosang/bilious appearing output (suspect 2/2 surgicell) General gastrointestinal: Present: soft. Absent: distended - Integumentary Integumentary: Present: normal - Neurologic Neurologic Comment(s): no gross deficits - Labs CBC & Chem 7: 02/22/23 06:07 02/22/23 06:07 Assessment and Plan Assessment: abdominal pain & nausea, not improving cholelithiasis with distended gallbladder - no signs of acute cholecystitis on imaging - no leukocytosis s/p attempted robotic assisted laparoscopic cholecystectomy converted to open subtotal cholecystectomy with COLLEEN drain placement 02/21 - chronic cholecystitis noted with extensive adhesions to liver from abdominal wall, GB & omentum Plan: OK for soft diet Added one time dose Miralax Trend labs Monitor COLLEEN output Dressing removed today Encourage IS, activity Time with Patient: Less than 30
[2023-02-23] MEDS: SODIUM CHLORIDE 0.9% 1,000 ML IV SCH (15:03)
--- NOTE | 2023-02-23 18:17 | P.PN ---
Progress Note - Text Progress Note Date: 02/23/23 This is a very pleasant 72-year-old patient who follows with Dr. Wero Ashton. This is a pleasant 72 years old female with past medical history of Osteoarthritis (OA), hypothyroidism, cervical cancer in 1983 Patient presents because of right upper quadrant abdominal pain started last night. At 7/10 in severity with rotating slightly to the back, felt like sharp and tightness. She states that she has issues with gallbladder for a while now. She denies vomiting but she has nausea. She had normal bowel movement She denies any change in her urine habits, no chest pain or dyspnea. No headache weakness or numbness. She denies smoking alcohol or illicit drugs Vitas looks stable and afebrile unremarkable cbc, bmp. liver enzymes elevated with ast 159 and alt 90. lipase is normal at 58. rest of bmp and amylase is normal. ekg showing normal sinus rhythm at [address]-t changes Bladder ultrasound: Gallstones without Fulvicin secondary ultrasound evidence for acute cholecystitis. There is mild extrahepatic biliary dilatation and the gallbladder has distended margins in patient with right upper quadrant abdominal pain it is not entirely exclude it 02/18/2023 Patient still feels sick, she still complaining from nausea although no vomiting, she could not tolerate diet and she could not eat Although her right upper quadrant abdominal pain and tenderness is improving and she has good bowel movement today but she still complaining from symptoms from her acute cholecystitis. Therefore we'll continue with bowel rest, IV antibiotics with fluid and surgery team following her closely with possible need for surgical intervention. Liver enzymes are showing mild improvement 02/19/2023: I assumed care of the patient today. Sitting up in a chair. Upper abdominal bloating. Some nausea. No fever no chills. Had a BM. Patient is being scheduled for surgery tomorrow. As patient has failed conservative management. 02/20/2023: Patient is ambulating in the hallway. Slight abdominal discomfort. Surgery is scheduled for tomorrow mouth because of scheduling issues. IV Zosyn. Minimal nausea. IV fluids 02/21/2023: Patient has been out of bed. Pending surgery later this evening as an add-on. Abdominal discomfort. Continue IV Zosyn. Discussed. 02/22/2023: Patient underwent cholecystectomy that was changed to open yesterday. Patient on full liquids. No nausea vomiting. Did ambulate. No fremitus. No BM. 02/23/2023: Diet advanced to regular by surgery. Did ambulate. Has been passing flatus. Family visiting. Past medical history to include: Osteoarthritis, hypothyroid, peripheral neuropathy, Tasneem's, cervical cancer 9084, Social history: Does not smoke. Alcohol occasionally. Family history: Lung cancer Physical examination: VITAL SIGNS: 98.5, 85, 16, 136/76, 96% room air GENERAL: Up in chair, comfortable EYES: Pupils equal. Conjunctiva normal. HEENT: External appearance of nose and ears normal, oral cavity grossly normal. NECK: JVD not raised; masses not palpable. HEART: First and second heart sounds are normal; no edema. LUNGS: Respiratory rate normal; clear to auscultation MUSCULOSKELETAL Evidence of OA. ABDOMEN: Soft, mild tenderness, liver spleen not palpable, no masses palpable. PSYCH: Alert and oriented x3; mood and affect normal. INVESTIGATIONS, reviewed in the clinical context: February 22: White count 10.3 hemoglobin 13.9 platelets 236 potassium 4.2 creatinine 0.63 February 19: White count 5.1 hemoglobin 14.4 platelets 222 potassium 3.7 creatinine 0.73 sodium 139 UA: Negative Amylase 41 lipase 58 EKG: Normal sinus rhythm Ultrasound gallbladder: Gallstones. Mild extremity biliary dilatation. Assessment and plan: -Acute on cholecystitis.- choledocholithiasis.: Failed outpatient conservative management. IV Zosyn. Underwent open subtotal cholecystectomy lysis of adhesions. COLLEEN drain. Advanced regular diet. Passing flatus. -Primary osteoarthritis multiple joints bilaterally Use pain medications as needed -Hypothyroid Synthroid, if 2 g -Peripheral neuropathy, idiopathic Cymbalta 60 mg daily -Urinary stress incontinence -Full code Increase activity. Doing better. Regular diet. Discussed Thank you
[2023-02-24] MEDS: SODIUM CHLORIDE 0.9% 1,000 ML IV SCH ×2 (02:52→17:42)
[2023-02-24] MEDS: LEVOTHYROXINE 25 MCG TAB PO SCH (06:36)
[2023-02-24 08:18] LABS: HCT 35.2 % (34.0-46.0); HGB 11.7 gm/dL (11.4-16.0); MCH 32.2 pg (25.0-35.0); MCHC 33.4 g/dL (31.0-37.0); MCV 96.4 fL (80.0-100.0); Mean Platelet Volume 7.4; Platelet Count 180 k/uL (150-450); RBC 3.65 m/uL (3.80-5.40); RDW 13.6 % (11.5-15.5); WBC 4.9 k/uL (3.8-10.6)
[2023-02-24 08:30] LABS: ALT 129 U/L (4-34); AST 56 U/L (14-36); African American GFR (CKD) >90 (>60 ml/min/1.73 sqM); Albumin/Globulin Ratio 1.3; Alkaline Phosphatase 71 U/L (38-126); Anion Gap 2 mmol/L; Blood Urea Nitrogen 4 mg/dL (7-17); Calcium 8.1 mg/dL (8.4-10.2); Carbon Dioxide 30 mmol/L (22-30); Chloride 107 mmol/L (98-107); Globulin 2.4 g/dL; Glucose 103 mg/dL (74-99); Magnesium 2.1 mg/dL (1.6-2.3); Non-African American GFR(CKD) >90 (>60 ml/min/1.73 sqM); Phosphorus 2.5 mg/dL (2.5-4.5); Potassium 4.4 mmol/L (3.5-5.1); Sodium 139 mmol/L (137-145); Total Bilirubin 0.8 mg/dL (0.2-1.3); Total Protein 5.4 g/dL (6.3-8.2)
[2023-02-24] MEDS: PIPERACILLIN-TAZOBACTAM 3.375 GM in SODIUM CHLORIDE 0.9% 100 ML IVPB SCH (09:03)
[2023-02-24] MEDS: HEPARIN SODIUM,PORCINE/PF 5,000 UNIT/0.5 ML SYRINGE SQ SCH ×2 (09:04→20:44)
[2023-02-24] MEDS: DOCUSATE 100 MG CAP PO SCH ×2 (09:04→20:44)
[2023-02-24] MEDS: methocarbamoL 500 MG TAB PO SCH ×4 (09:04→20:44)
[2023-02-24] MEDS: FAMOTIDINE 20 MG/2 ML VIAL IV SCH ×2 (09:05→20:44)
[2023-02-24] MEDS: DULoxetine HCL 60 MG CAPSULE.DR PO SCH (09:05)
[2023-02-24] MEDS: SENNOSIDES 8.6 MG TAB PO SCH ×2 (09:05→20:44)
[2023-02-24] MEDS ORDERED: bisacodyL 10 MG SUPP RECTAL STA (10:00)
[2023-02-24] MEDS: polyethylene glycoL 3350 17 GM POWD.PACK PO SCH (11:11)
--- NOTE | 2023-02-24 16:20 | P.PN ---
Progress Note - Text Progress Note Date: 02/24/23 This is a very pleasant 72-year-old patient who follows with Dr. Wero Ashton. This is a pleasant 72 years old female with past medical history of Osteoarthritis (OA), hypothyroidism, cervical cancer in 1983 Patient presents because of right upper quadrant abdominal pain started last night. At 7/10 in severity with rotating slightly to the back, felt like sharp and tightness. She states that she has issues with gallbladder for a while now. She denies vomiting but she has nausea. She had normal bowel movement She denies any change in her urine habits, no chest pain or dyspnea. No headache weakness or numbness. She denies smoking alcohol or illicit drugs Vitas looks stable and afebrile unremarkable cbc, bmp. liver enzymes elevated with ast 159 and alt 90. lipase is normal at 58. rest of bmp and amylase is normal. ekg showing normal sinus rhythm at [address]-t changes Bladder ultrasound: Gallstones without Fulvicin secondary ultrasound evidence for acute cholecystitis. There is mild extrahepatic biliary dilatation and the gallbladder has distended margins in patient with right upper quadrant abdominal pain it is not entirely exclude it 02/18/2023 Patient still feels sick, she still complaining from nausea although no vomiting, she could not tolerate diet and she could not eat Although her right upper quadrant abdominal pain and tenderness is improving and she has good bowel movement today but she still complaining from symptoms from her acute cholecystitis. Therefore we'll continue with bowel rest, IV antibiotics with fluid and surgery team following her closely with possible need for surgical intervention. Liver enzymes are showing mild improvement 02/19/2023: I assumed care of the patient today. Sitting up in a chair. Upper abdominal bloating. Some nausea. No fever no chills. Had a BM. Patient is being scheduled for surgery tomorrow. As patient has failed conservative management. 02/20/2023: Patient is ambulating in the hallway. Slight abdominal discomfort. Surgery is scheduled for tomorrow mouth because of scheduling issues. IV Zosyn. Minimal nausea. IV fluids 02/21/2023: Patient has been out of bed. Pending surgery later this evening as an add-on. Abdominal discomfort. Continue IV Zosyn. Discussed. 02/22/2023: Patient underwent cholecystectomy that was changed to open yesterday. Patient on full liquids. No nausea vomiting. Did ambulate. No fremitus. No BM. 02/23/2023: Diet advanced to regular by surgery. Did ambulate. Has been passing flatus. Family visiting. 02/24/2023: Tolerating diet. Pain control. Possibly flatus. No BM. present. Ambulating. Received laxative yesterday. Past medical history to include: Osteoarthritis, hypothyroid, peripheral neuropathy, Tasneem's, cervical cancer 9084, Social history: Does not smoke. Alcohol occasionally. Family history: Lung cancer Physical examination: VITAL SIGNS: 98.2, 82, 16, 123 was 78, 96% room air GENERAL: Up in a recliner, comfortable EYES: Pupils equal. Conjunctiva normal. HEENT: External appearance of nose and ears normal, oral cavity grossly normal. NECK: JVD not raised; masses not palpable. HEART: First and second heart sounds are normal; no edema. LUNGS: Respiratory rate normal; clear to auscultation MUSCULOSKELETAL Evidence of OA. ABDOMEN: Soft, mild tenderness, liver spleen not palpable, no masses palpable. COLLEEN drain PSYCH: Alert and oriented x3; mood and affect normal. INVESTIGATIONS, reviewed in the clinical context: February 24 dose: White count 4.9 hemoglobin 11.7 potassium 4.4 creatinine 0.64 AST 56 ALT 129 February 22: White count 10.3 hemoglobin 13.9 platelets 236 potassium 4.2 creatinine 0.63 February 19: White count 5.1 hemoglobin 14.4 platelets 222 potassium 3.7 creatinine 0.73 sodium 139 UA: Negative Amylase 41 lipase 58 EKG: Normal sinus rhythm Ultrasound gallbladder: Gallstones. Mild extremity biliary dilatation. Assessment and plan: -Acute on cholecystitis.- choledocholithiasis.: Failed outpatient conservative management. IV Zosyn. open subtotal cholecystectomy lysis of adhesions on February 23. COLLEEN drain. regular diet. Passing flatus. -Primary osteoarthritis multiple joints bilaterally Use pain medications as needed -Hypothyroid Synthroid, if 2 g -Peripheral neuropathy, idiopathic Cymbalta 60 mg daily -Urinary stress incontinence -Full code Continue current meds. Enema today if no BM.. Discussed Thank you
[2023-02-25] MEDS: SODIUM CHLORIDE 0.9% 1,000 ML IV SCH ×2 (05:17→16:53)
[2023-02-25] MEDS: LEVOTHYROXINE 25 MCG TAB PO SCH (05:41)
[2023-02-25] MEDS: SENNOSIDES 8.6 MG TAB PO SCH ×2 (08:58→19:54)
[2023-02-25] MEDS: DOCUSATE 100 MG CAP PO SCH ×2 (08:59→19:55)
[2023-02-25] MEDS: DULoxetine HCL 60 MG CAPSULE.DR PO SCH (08:59)
[2023-02-25] MEDS: HEPARIN SODIUM,PORCINE/PF 5,000 UNIT/0.5 ML SYRINGE SQ SCH ×2 (08:59→19:53)
[2023-02-25] MEDS: FAMOTIDINE 20 MG/2 ML VIAL IV SCH ×2 (08:59→19:55)
[2023-02-25] MEDS: methocarbamoL 500 MG TAB PO SCH ×4 (08:59→19:54)
[2023-02-25] MEDS: polyethylene glycoL 3350 17 GM POWD.PACK PO SCH (09:00)
--- NOTE | 2023-02-25 17:38 | P.PN ---
Progress Note - Text Progress Note Date: 02/25/23 This is a very pleasant 72-year-old patient who follows with Dr. Wero Ashton. This is a pleasant 72 years old female with past medical history of Osteoarthritis (OA), hypothyroidism, cervical cancer in 1983 Patient presents because of right upper quadrant abdominal pain started last night. At 7/10 in severity with rotating slightly to the back, felt like sharp and tightness. She states that she has issues with gallbladder for a while now. She denies vomiting but she has nausea. She had normal bowel movement She denies any change in her urine habits, no chest pain or dyspnea. No headache weakness or numbness. She denies smoking alcohol or illicit drugs Vitas looks stable and afebrile unremarkable cbc, bmp. liver enzymes elevated with ast 159 and alt 90. lipase is normal at 58. rest of bmp and amylase is normal. ekg showing normal sinus rhythm at [address]-t changes Bladder ultrasound: Gallstones without Fulvicin secondary ultrasound evidence for acute cholecystitis. There is mild extrahepatic biliary dilatation and the gallbladder has distended margins in patient with right upper quadrant abdominal pain it is not entirely exclude it 02/18/2023 Patient still feels sick, she still complaining from nausea although no vomiting, she could not tolerate diet and she could not eat Although her right upper quadrant abdominal pain and tenderness is improving and she has good bowel movement today but she still complaining from symptoms from her acute cholecystitis. Therefore we'll continue with bowel rest, IV antibiotics with fluid and surgery team following her closely with possible need for surgical intervention. Liver enzymes are showing mild improvement 02/19/2023: I assumed care of the patient today. Sitting up in a chair. Upper abdominal bloating. Some nausea. No fever no chills. Had a BM. Patient is being scheduled for surgery tomorrow. As patient has failed conservative management. 02/20/2023: Patient is ambulating in the hallway. Slight abdominal discomfort. Surgery is scheduled for tomorrow mouth because of scheduling issues. IV Zosyn. Minimal nausea. IV fluids 02/21/2023: Patient has been out of bed. Pending surgery later this evening as an add-on. Abdominal discomfort. Continue IV Zosyn. Discussed. 02/22/2023: Patient underwent cholecystectomy that was changed to open yesterday. Patient on full liquids. No nausea vomiting. Did ambulate. No fremitus. No BM. 02/23/2023: Diet advanced to regular by surgery. Did ambulate. Has been passing flatus. Family visiting. 02/24/2023: Tolerating diet. Pain control. Possibly flatus. No BM. present. Ambulating. Received laxative yesterday. 03/07/2023: About 10 mL output from GI. Last 20 hours. Pain better control. Antibiotics discontinued per surgery. Patient surgeon will be in tomorrow. Who did the surgery. If stable will discharge. Past medical history to include: Osteoarthritis, hypothyroid, peripheral neuropathy, Tasneem's, cervical cancer 9084, Social history: Does not smoke. Alcohol occasionally. Family history: Lung cancer Physical examination: VITAL SIGNS: 98.2, 99, 16, 121/72, 96% room air GENERAL: Up in a recliner, comfortable EYES: Pupils equal. Conjunctiva normal. HEENT: External appearance of nose and ears normal, oral cavity grossly normal. NECK: JVD not raised; masses not palpable. HEART: First and second heart sounds are normal; no edema. LUNGS: Respiratory rate normal; clear to auscultation MUSCULOSKELETAL Evidence of OA. ABDOMEN: Soft, enema tenderness, liver spleen not palpable, no masses palpable. COLLEEN drain PSYCH: Alert and oriented x3; mood and affect normal. INVESTIGATIONS, reviewed in the clinical context: February 24 dose: White count 4.9 hemoglobin 11.7 potassium 4.4 creatinine 0.64 AST 56 ALT 129 February 22: White count 10.3 hemoglobin 13.9 platelets 236 potassium 4.2 creatinine 0.63 February 19: White count 5.1 hemoglobin 14.4 platelets 222 potassium 3.7 creatinine 0.73 sodium 139 UA: Negative Amylase 41 lipase 58 EKG: Normal sinus rhythm Ultrasound gallbladder: Gallstones. Mild extremity biliary dilatation. Assessment and plan: -Acute on cholecystitis.- choledocholithiasis.: Improving Failed outpatient conservative management. IV Zosyn discontinued. open subtotal cholecystectomy lysis of adhesions on February 23. COLLEEN drain. regular diet. Passing flatus. -Primary osteoarthritis multiple joints bilaterally Use pain medications as needed -Hypothyroid Synthroid, if 2 g -Peripheral neuropathy, idiopathic Cymbalta 60 mg daily -Urinary stress incontinence -Full code Improving. Discussed with patient. Hopefully home tomorrow if okay with surgery
[2023-02-26] MEDS: SODIUM CHLORIDE 0.9% 1,000 ML IV SCH (03:10)
[2023-02-26] MEDS: LEVOTHYROXINE 25 MCG TAB PO SCH (06:16)
[2023-02-26] MEDS: polyethylene glycoL 3350 17 GM POWD.PACK PO SCH (09:11)
[2023-02-26] MEDS: HEPARIN SODIUM,PORCINE/PF 5,000 UNIT/0.5 ML SYRINGE SQ SCH (09:16)
[2023-02-26] MEDS: SENNOSIDES 8.6 MG TAB PO SCH (09:20)
[2023-02-26] MEDS: DULoxetine HCL 60 MG CAPSULE.DR PO SCH (09:20)
[2023-02-26] MEDS: DOCUSATE 100 MG CAP PO SCH (09:20)
[2023-02-26] MEDS: methocarbamoL 500 MG TAB PO SCH ×2 (09:20→12:49)
[2023-02-26] MEDS: FAMOTIDINE 20 MG/2 ML VIAL IV SCH (09:21)
[2023-02-26 14:44] VITALS: BMI 29.9
[2023-02-26 16:07] VITALS: BP 122/72; PULSE 103; RESP 16; TEMP 97.8
--- NOTE | 2023-02-26 23:45 | P.DS ---
Providers Date of admission: 02/19/23 12:09 Expected date of discharge: 02/26/23 Attending physician: Manish Mortensen Consults: 02/17/23 08:31 Consult Physician Routine Consulting Provider: Cathy Chino Consult Reason/Comments: Cholelithiasis Do you want consulting provider notified?: Already Contacted Primary care physician: Wero Jiménez Poli [facility] Course: This is a very pleasant 72-year-old patient who follows with Dr. Wero Ashton. This is a pleasant 72 years old female with past medical history of Osteoarthritis (OA), hypothyroidism, cervical cancer in 1983 Patient presents because of right upper quadrant abdominal pain started last night. At 7/10 in severity with rotating slightly to the back, felt like sharp and tightness. She states that she has issues with gallbladder for a while now. She denies vomiting but she has nausea. She had normal bowel movement She denies any change in her urine habits, no chest pain or dyspnea. No headache weakness or numbness. She denies smoking alcohol or illicit drugs Vitas looks stable and afebrile unremarkable cbc, bmp. liver enzymes elevated with ast 159 and alt 90. lipase is normal at 58. rest of bmp and amylase is normal. ekg showing normal sinus rhythm at [address]-t changes Bladder ultrasound: Gallstones without Fulvicin secondary ultrasound evidence for acute cholecystitis. There is mild extrahepatic biliary dilatation and the gallbladder has distended margins in patient with right upper quadrant abdominal pain it is not entirely exclude it 02/18/2023 Patient still feels sick, she still complaining from nausea although no vomiting, she could not tolerate diet and she could not eat Although her right upper quadrant abdominal pain and tenderness is improving and she has good bowel movement today but she still complaining from symptoms from her acute cholecystitis. Therefore we'll continue with bowel rest, IV antibiotics with fluid and surgery team following her closely with possible need for surgical intervention. Liver enzymes are showing mild improvement 02/19/2023: I assumed care of the patient today. Sitting up in a chair. Upper abdominal bloating. Some nausea. No fever no chills. Had a BM. Patient is being scheduled for surgery tomorrow. As patient has failed conservative management. 02/20/2023: Patient is ambulating in the hallway. Slight abdominal discomfort. Surgery is scheduled for tomorrow mouth because of scheduling issues. IV Zosyn. Minimal nausea. IV fluids 02/21/2023: Patient has been out of bed. Pending surgery later this evening as an add-on. Abdominal discomfort. Continue IV Zosyn. Discussed. 02/22/2023: Patient underwent cholecystectomy that was changed to open yesterday. Patient on full liquids. No nausea vomiting. Did ambulate. No fremitus. No BM. 02/23/2023: Diet advanced to regular by surgery. Did ambulate. Has been passing flatus. Family visiting. 02/24/2023: Tolerating diet. Pain control. Possibly flatus. No BM. present. Ambulating. Received laxative yesterday. 02/25/2023: About 10 mL output from GI. Last 20 hours. Pain better control. Antibiotics discontinued per surgery. Patient surgeon will be in tomorrow. Who did the surgery. If stable will discharge. 02/26/2023: Feeling well. Had a bowel movement. No pain. No antibiotics per surgery. Cleared by surgery for DC Past medical history to include: Osteoarthritis, hypothyroid, peripheral neuropathy, Tasneem's, cervical cancer 9084, Social history: Does not smoke. Alcohol occasionally. Family history: Lung cancer Physical examination: VITAL SIGNS: 97.8, 103, 16, 122/72, 97% room air GENERAL: Up in a recliner, comfortable EYES: Pupils equal. Conjunctiva normal. HEENT: External appearance of nose and ears normal, oral cavity grossly normal. NECK: JVD not raised; masses not palpable. HEART: First and second heart sounds are normal; no edema. LUNGS: Respiratory rate normal; clear to auscultation MUSCULOSKELETAL Evidence of OA. ABDOMEN: Soft, enema tenderness, liver spleen not palpable, no masses palpable. COLLEEN drain PSYCH: Alert and oriented x3; mood and affect normal. INVESTIGATIONS, reviewed in the clinical context: February 24 dose: White count 4.9 hemoglobin 11.7 potassium 4.4 creatinine 0.64 AST 56 ALT 129 February 22: White count 10.3 hemoglobin 13.9 platelets 236 potassium 4.2 creatinine 0.63 February 19: White count 5.1 hemoglobin 14.4 platelets 222 potassium 3.7 creatinine 0.73 sodium 139 UA: Negative Amylase 41 lipase 58 EKG: Normal sinus rhythm Ultrasound gallbladder: Gallstones. Mild extremity biliary dilatation. Assessment and plan: -Acute on cholecystitis.- choledocholithiasis.: Improving Failed outpatient conservative management. IV Zosyn discontinued. open subtotal cholecystectomy lysis of adhesions on February 23. COLLEEN drain. regular diet. Passing flatus. -Primary osteoarthritis multiple joints bilaterally Use pain medications as needed -Hypothyroid Synthroid, if 2 g -Peripheral neuropathy, idiopathic Cymbalta 60 mg daily -Urinary stress incontinence -Full code Disposition: Home Plan - Discharge Summary Discharge Rx Participant: Yes New Discharge Prescriptions: New polyethylene glycoL 3350 [Miralax] 17 gm PO DAILY packet Acetaminophen Tab [Tylenol] 650 mg PO Q6HR PRN #30 tab PRN Reason: Mild Pain Or Fever > 100.5 Continue DULoxetine HCL [Cymbalta] 60 mg PO DAILY Multivitamins, Thera [Multivitamin (formulary)] 1 tab PO DAILY Levothyroxine Sodium 25 mcg PO MOTUWETHFR Cholecalciferol [Vitamin D3 (25 Mcg = 1000 Iu)] 50 mcg PO DAILY Levothyroxine Sodium [Synthroid] 50 mcg PO SUSA Discharge Medication List DULoxetine HCL [Cymbalta] 60 mg PO DAILY 12/04/16 [History] Levothyroxine Sodium 25 mcg PO MOTUWETHFR 12/20/20 [History] Multivitamins, Thera [Multivitamin (formulary)] 1 tab PO DAILY 12/20/20 [History ] Cholecalciferol [Vitamin D3 (25 Mcg = 1000 Iu)] 50 mcg PO DAILY 02/17/23 [History] Levothyroxine Sodium [Synthroid] 50 mcg PO SUSA 02/17/23 [History] Acetaminophen Tab [Tylenol] 650 mg PO Q6HR PRN #30 tab 02/26/23 [Rx] polyethylene glycoL 3350 [Miralax] 17 gm PO DAILY packet 02/26/23 [Rx] Follow up Appointment(s)/Referral(s): Wero Ashton MD [Primary Care Provider] - 1-2 days Cathy Chino DO [Doctor of Osteopathic Medicine] - 03/07/23 9:15 am Patient Instructions/Handouts: *Surgery [facility] - ([facility]) Laparoscopic Cholecystectomy Activity/Diet/Wound Care/Special Instructions: wound / dc surgical orders per surgery Discharge Disposition: HOME SELF-CARE
== END 2023-02-26 17:07 | disposition home or self-care (01) | DRG 416 ==
LOC: EC 05:51 → 6NMEDSUR 08:47 → OBSVTOIN 02-19 12:09
PROVIDERS: ADMIT Hospitalist; ATTEND Hospitalist
PROC: 0DNU4ZZ Release Omentum, Percutaneous Endoscopic Approach (ICD-10-PCS; 2023-02-21)
PROC: 0DNW4ZZ Release Peritoneum, Percutaneous Endoscopic Approach (ICD-10-PCS; 2023-02-21)
PROC: 0FB40ZZ Excision of Gallbladder, Open Approach (ICD-10-PCS; principal; 2023-02-21 08:00)
PROC: 0FJ44ZZ Inspection of Gallbladder, Percutaneous Endoscopic Approach (ICD-10-PCS; principal; 2023-02-21 08:00)
DX: K80.12 Calculus of gallbladder with acute and chronic cholecystitis without obstruction (principal); G60.9 Hereditary and idiopathic neuropathy, unspecified; K66.0 Peritoneal adhesions (postprocedural) (postinfection); E06.3 Autoimmune thyroiditis; Z85.41 Personal history of malignant neoplasm of cervix uteri; Z87.891 Personal history of nicotine dependence; N39.3 Stress incontinence (female) (male); M15.9 Polyosteoarthritis, unspecified; Z53.31 Laparoscopic surgical procedure converted to open procedure; Z79.890 Hormone replacement therapy; Z79.899 Other long term (current) drug therapy; Z90.710 Acquired absence of both cervix and uterus; Z96.649 Presence of unspecified artificial hip joint; Z98.1 Arthrodesis status; Z28.311 Partially vaccinated for COVID-19
CPT/HCPCS: 36415; 71046; 76705; 80048; 80053; 80076; 81003; 82150; 83690; 83735; 84100; 85025; 85027; 85610; 85730; 88304; 93005; 94760; 96374; 96375; 96376; 99285

== ENCOUNTER → 2023-10-05 | Outpatient (CLI) | payer MEDICARE, OTHER ==
--- NOTE | 2023-10-05 14:29 | MM ---
Reason for Exam: Clinical finding. Last screening mammogram was performed 9 month(s) ago. Indicated Problems: Non-bloody discharge of the left side (Yellow) for 2 Month(s). Patient History: Menarche at age 13. First Full-Term at age 19. Left ovary removed at age 67. Right ovary removed at age 67. Hysterectomy at age 33. Postmenopausal. Other cancer, age 33. 1989, Benign Excisional Biopsy on the left side. 03/18/2012, Benign Core Biopsy on the right side. Paternal cousin had breast cancer, age 35. Paternal aunt had breast cancer, age 80. Risk Values: Delores 5 year model risk: 1.9%. NCI Lifetime model risk: 5.2%. Tissue Density: There are scattered fibroglandular densities. Findings: Analyzed By CAD. No finding to correlate with patient's nipple discharge on the left. No new suspicious masses, calcifications or distortions. Overall Assessment: Incomplete: need additional imaging evaluation, BI-RAD 0 Management: Diagnostic Breast Ultrasound of the left breast. Results were given to the patient verbally at the time of exam. Patient should continue monthly self-breast exams. A clinical breast exam by your physician is recommended on an annual basis. This exam should not preclude additional follow-up of suspicious palpable abnormalities. Note on Delores scores and lifetime risk: 1. A Delores score greater than 3% is considered moderate risk. If this is the case, consider specialist referral to assess eligibility for a risk reducing agent. 2. If overall lifetime risk for the development of breast cancer is 20% or higher, the patient may qualify for future screening with alternating mammogram and breast MRI. Electronically signed and approved by: Taras Ann DO
--- NOTE | 2023-10-05 14:57 | USB ---
Reason for Exam: Clinical finding. Patient History: Menarche at age 13. First Full-Term at age 19. Left ovary removed at age 67. Right ovary removed at age 67. Hysterectomy at age 33. Postmenopausal. Other cancer, age 33. 1989, Benign Excisional Biopsy on the left side. 03/18/2012, Benign Core Biopsy on the right side. Paternal cousin had breast cancer, age 35. Paternal aunt had breast cancer, age 80. Risk Values: Delores 5 year model risk: 1.9%. NCI Lifetime model risk: 5.2%. Technique: Method: Targeted. Prior Study Comparison: 03/13/2019 Left Diagnostic Mammogram, [facility]. 12/01/2021 Bilateral Screening Mammogram, [facility]. 12/22/2022 Bilateral MG 3D screening mammo w/cad, [facility]. Findings: The periareolar of the left breast, the axilla of the left breast and the retroareolar of the left breast were scanned. Technique utilized:US breast limited LT Image; Ultrasound imaging of: Area of concern, retroareolar region and axilla. Few dilated ducts in the retroareolar region at 6:00 1 cm from the nipple. No suspicious mass or organizing fluid collection. Overall Assessment: Benign, BI-RAD 2 Management: Screening Mammogram of both breasts in 1 year. A clinical breast exam by your physician is recommended on an annual basis and results should be correlated with mammographic findings. This exam should not preclude additional follow-up of suspicious palpable abnormalities. Results were given to the patient verbally at the time of exam. Electronically signed and approved by: Taras Ann DO
== END | disposition home or self-care (01) ==
LOC: RADMAMWWP 14:04
PROVIDERS: ATTEND Obstetrics & Gynecology
DX: N64.52 Nipple discharge (principal); R92.323 Mammographic fibroglandular density, bilateral breasts; Z78.0 Asymptomatic menopausal state; Z80.3 Family history of malignant neoplasm of breast
CPT/HCPCS: 77066; 76642; G0279; 77062

== ENCOUNTER → 2024-06-05 | Outpatient (CLI) | payer MEDICARE, OTHER ==
[2024-06-05 15:07] LABS: HCT 44.7 % (37.2-46.3); HGB 14.5 g/dL (12.0-15.0); MCH 31.6 pg (27.0-32.0); MCHC 32.4 g/dL (32.0-37.0); MCV 97.4 FL (80.0-97.0); Mean Platelet Volume 9.5 FL (9.5-12.2); NRBC Per 100 WBC 0 X 10*3/uL (0.00-0.01); Platelet Count 232 X 10*3/uL (140-440); RBC 4.59 X 10*6/uL (4.10-5.20); RDW 12.9 % (11.5-14.5); WBC 4.34 X 10*3/uL (4.50-10.00)
[2024-06-05 15:35] LABS: ALT 28 U/L (8-44); AST 22 U/L (13-35); Albumin 4.3 g/dL (3.8-4.9); Albumin/Globulin Ratio 2.15 Ratio (1.60-3.17); Alkaline Phosphatase 65 U/L (41-126); BUN/Creat Ratio 18.29 Ratio (12.00-20.00); Blood Urea Nitrogen 12.8 mg/dL (9.0-27.0); Calcium 9.2 mg/dL (8.7-10.3); Carbon Dioxide 24.5 mmol/L (21.6-31.8); Chloride 104 mmol/L (96-109); Glucose 108 mg/dL (70-110); Lipase 22 U/L (14-63); Potassium 4.5 mmol/L (3.5-5.5); Sodium 140 mmol/L (135-145); Total Bilirubin 0.4 mg/dL (0.3-1.2); Total Protein 6.3 g/dL (6.2-8.2)
== END | disposition home or self-care (01) ==
LOC: LABWHC1 11:14
PROVIDERS: ATTEND Surgery
DX: K81.1 Chronic cholecystitis (principal)
CPT/HCPCS: 36415; 80053; 83690; 85027

== ENCOUNTER → 2025-02-09 | Outpatient (CLI) | payer MEDICARE, OTHER ==
--- NOTE | 2025-02-09 10:17 | MM ---
Reason for Exam: Screening (asymptomatic). Last mammogram was performed 1 year(s) and 4 month(s) ago. Patient History: Menarche at age 13. First Full-Term at age 19. Left ovary removed at age 67. Right ovary removed at age 67. Hysterectomy at age 33. Postmenopausal. Other cancer, age 33. 1989, Benign Excisional Biopsy on the left side. 03/18/2012, Benign Core Biopsy on the right side. Paternal cousin had breast cancer, age 35. Paternal aunt had breast cancer, age 80. Risk Values: Delores 5 year model risk: 1.9%. NCI Lifetime model risk: 4.7%. Prior Study Comparison: 12/01/2021 Bilateral Screening Mammogram, [facility]. 12/22/2022 Bilateral MG 3D screening mammo w/cad, [facility]. 10/05/2023 Bilateral MG 3D diag mammo w/cad [facility], [facility]. Tissue Density: The breasts are heterogeneously dense, which may obscure small masses. Findings: Analyzed By CAD. There is no suspicious group of microcalcifications or new suspicious mass in either breast. Surgical loop in the right breast. Benign calcifications. Stable chronic nodularity along the inner margin of the right breast. Overall Assessment: Benign, BI-RAD 2 Management: Screening Mammogram of both breasts in 1 year. . Patient should continue monthly self-breast exams. A clinical breast exam by your physician is recommended on an annual basis. This exam should not preclude additional follow-up of suspicious palpable abnormalities. Note on Delores scores and lifetime risk: 1. A Delores score greater than 3% is considered moderate risk. If this is the case, consider specialist referral to assess eligibility for a risk reducing agent. 2. If overall lifetime risk for the development of breast cancer is 20% or higher, the patient may qualify for future screening with alternating mammogram and breast MRI. [facility], , 02/09/2025 10:15 AM. Electronically signed and approved by: Quan Mcneill M.D. Radiologis
== END | disposition home or self-care (01) ==
LOC: RADMAMWWP 09:20
PROVIDERS: ATTEND Family Medicine
DX: Z12.31 Encounter for screening mammogram for malignant neoplasm of breast (principal); R92.333 Mammographic heterogeneous density, bilateral breasts; Z78.0 Asymptomatic menopausal state; Z80.3 Family history of malignant neoplasm of breast
CPT/HCPCS: 77063; 77067